=== PATIENT | female | born 1955 | race Caucasian/White ===

== ENCOUNTER 2017-04-29 15:31 | Emergency (ER) | payer BC ==
[~2017-04-29] VITALS: Ht 165.1 cm; Wt 88.5 kg
[~2017-04-29 15:31] MED LIST: KFL/250 PO
[2017-04-29 15:36] VITALS: TEMP 37.7; Ht 165.1 cm; Wt 88.5 kg
[2017-04-29] MEDS ORDERED: VANCOMYCIN INJ 2,200 MG in SODIUM CHLORIDE 0.9% 500ML 500 ML IV STA (15:52)
[2017-04-29] MEDS ORDERED: SODIUM CHLORIDE 0.9% 1000ML 2,000 ML IV STA (15:52)
[2017-04-29] MEDS ORDERED: CEFTRIAXONE SOD INJ 1 GM ADDVIAL IV STA (15:52)
--- NOTE | 2017-04-29 16:04 | EMERGENCY ROOM VISIT NOTE ---
History Report prepared by Madhu: Марина Barrow Under the Supervision of: Dr. Fawn Crawford M.D. First contact with patient: 15:41 Chief Complaint: RASH Stated Complaint: BAD RASH ON FACE, RIB PAIN, JITTERS History of Present Illness The patient is a 61 year old female who presents to the Emergency Room with complaints of a worsening rash on her face beginning 5 days ago. Five days ago, the patient's rash started as a red dot on her nose. She reports these spots were painful and had swelling around them. Two days ago, the patient's rash became "cecily sized" and her eye left eye was swollen. Two days ago, the patient was seen at [facility] and was put on Keflex and was told to come to the ED if the rash worsened. The patient states her rash worsened and started to spread more this morning. She notes fatigue, chills, a headache, a decreased appetite, and chest discomfort but denies any eye pain. She believes her chest tightness may be attributed to the Keflex. The patient reports recent tick bites in January. Two months ago, the patient was in [place]. Source of History: patient Onset: 5 days ago Position: other (facial) Quality: other (rash) Timing: worsening Associated Symptoms: + chills, + headache, + chest pain, + fatigue Note: The patient notes loss of appetite and pain to the rash areas. Review of Systems See HPI for pertinent positives & negatives. A total of 10 systems reviewed and were otherwise negative. Past Medical & Surgical Medical Problems: (1) Tick bite Family History Patient reports no known family medical history. Social History Smoking Status: Never Smoker Marital Status: Housing Status: lives with family Occupation Status: employed Current/Historical Medications Scheduled Cephalexin Monohydrate (Keflex), 250 MG PO QID Scheduled PRN Ibuprofen (Advil), 200-600 MG PO Q4H PRN for Pain or Fever Allergies Coded Allergies: No Known Allergies (Unverified , 04/29/17) Physical Exam Vital Signs Date Time Temp Pulse Resp B/P (MAP) Pulse Ox O2 Delivery O2 Flow Rate FiO2 04/29/17 20:07 82 18 120/74 94 04/29/17 18:36 88 22 93 04/29/17 18:31 88 21 123/77 93 04/29/17 18:01 92 04/29/17 18:01 91 24 91 04/29/17 18:00 130/73 04/29/17 17:56 91 18 115/69 97 Room Air 04/29/17 17:38 115/69 04/29/17 15:36 37.7 109 18 123/69 97 Room Air Physical Exam Vital signs reviewed. General: Well-appearing female, in no significant distress. HEENT: No scleral icterus, PERRLA, neck supple. Atraumatic. Facial rash as described below Cardiovascular: Regular rate and rhythm, no extra sounds. Pulmonary: Clear to auscultation bilaterally, normal work of breathing. Abdomen: Soft, nontender, nondistended, positive bowel sounds. Musculoskeletal: Atraumatic, no peripheral edema. Neurologic: Patient awake alert and oriented x 3, full strength in all 4 extremities. Cranial nerves 2 through 12 grossly intact. Skin: Left facial cheek with 3 centimeter area of induration and ecchymosis with surrounding erythema of periorbital space. Right facial cheek with small subcentimeter of induration and ecchymosis. Bridge of nose has similar induration and ecchymosis. Medical Decision & Procedures ER Provider Diagnostic Interpretation: Radiology results as stated below per my review and radiologist interpretation: CHEST ONE VIEW PORTABLE FINDINGS: Cardiomediastinal and hilar silhouettes are within normal limits. No pneumothorax, pleural effusion, focal airspace consolidation or overt pulmonary edema. Bones of the chest appear grossly intact. Atherosclerosis of the aorta. IMPRESSION: No acute cardiopulmonary process. The above report was generated using voice recognition software. It may contain grammatical, syntax or spelling errors. Electronically signed by: Byron Berry M.D. SOFT TISSUE NECK WITH FINDINGS: There is mild to moderate left periorbital, left temporal and left cheek soft tissue swelling with subcutaneous edema and skin thickening. No post septal or intraconal inflammatory changes. Bilateral orbits appear symmetric and unremarkable. No significant soft tissue swelling of the right face identified. No peripherally enhancing collections to suggest abscess. Submandibular and parotid glands are unremarkable. Mildly prominent bilateral level 1 and level 2 lymph nodes are likely reactive. No pathologic adenopathy by CT size criteria. Thyroid is homogeneous. The nasopharynx, oral pharynx and hypopharynx are patent. Mild secretions noted within the vallecula and piriform sinuses. Tonsilliths involve the palatine tonsils. No peritonsillar abscess. The glottis and subglottic airway are unremarkable. Carotid vasculature appears patent. No acute intracranial abnormality identified. Partially imaged ground glass opacities are noted within the superior segment left lower lobe. Multilevel facet arthropathy and endplate spurring of the cervical spine. Mastoid air cells are clear. Mild mucoperiosteal thickening of the maxillary and ethmoid sinuses. Multiple teeth are noted with dental amalgam. No large periapical cysts or dental abscess identified. IMPRESSION: 1. Mild to moderate left periorbital, left temporal and left cheek cellulitis without drainable fluid collection to suggest abscess. 2. Mildly prominent level I and level II lymph nodes are likely reactive. 3. Partially imaged groundglass opacities of the superior segment left lower lobe suggest atelectasis or pneumonitis. 4. Mild paranasal sinus disease. The above report was generated using voice recognition software. It may contain grammatical, syntax or spelling errors. Electronically signed by: Byron Berry M.D. Laboratory Results 04/29/17 16:10 Red Blood Count 3.41, Mean Corpuscular Volume 95.6, Mean Corpuscular Hemoglobin 32.0, Mean Corpuscular Hemoglobin Concent 33.4 04/29/17 16:10 Test 04/29/17 16:10 04/29/17 16:19 04/29/17 16:23 04/29/17 18:44 White Blood Count 58.16 K/uL (4.8-10.8) Red Blood Count 3.41 M/uL (4.2-5.4) Hemoglobin 10.9 g/dL (12.0-16.0) Hematocrit 32.6 % (37-47) Mean Corpuscular Volume 95.6 fL (80-100) Mean Corpuscular Hemoglobin 32.0 pg (25-34) Mean Corpuscular Hemoglobin Concent 33.4 g/dl (32-36) Platelet Count 30 K/uL (130-400) RDW Standard Deviation 57.0 fL (36.4-46.3) RDW Coefficient of Variation 16.5 % (11.5-14.5) Nucleated RBC Absolute Count (auto) 0.14 K/uL (0-0) Neutrophils % (Manual) 19.8 % Lymphocytes % (Manual) 9.3 % Monocytes % (Manual) 4.0 % Metamyelocytes % 0.4 % Myelocytes % 1.3 % Promyelocytes % 0.4 % Blast Cells % 64.8 % Nucleated Red Blood Cells % 0.2 % Neutrophils # (Manual) 11.52 K/uL (1.4-6.5) Total Absolute Neutrophils 11.52 K/uL (1.4-6.5) Lymphocytes # (Manual) 5.41 K/uL (1.2-3.4) Total Absolute Lymphocytes 5.41 K/uL (1.2-3.4) Monocytes # (Manual) 2.33 K/uL (0.11-0.59) Metamyelocytes # 0.23 K/uL (0-0) Myelocytes # 0.76 K/uL (0-0) Promyelocytes # 0.23 K/uL (0-0) Blast Cells # 37.69 K/uL (0-0) Blood Smear Review Toxic Vacuolation 1+ Dohle Bodies OCCASIONAL Platelet Estimate DECREASED Anion Gap 8.0 mmol/L (3-11) Est Creatinine Clear Calc Drug Dose 63.2 ml/min Estimated GFR () 67.6 Estimated GFR (Non- 58.4 BUN/Creatinine Ratio 13.5 (10-20) Uric Acid 2.6 mg/dl (2.6-7.2) Calcium Level 8.5 mg/dl (8.5-10.1) Total Bilirubin 0.7 mg/dl (0.2-1) Direct Bilirubin 0.2 mg/dl (0-0.2) Aspartate Amino Transf (AST/SGOT) 27 U/L (15-37) Alanine Aminotransferase (ALT/SGPT) 34 U/L (12-78) Alkaline Phosphatase 79 U/L (45-117) Lactate Dehydrogenase 578 U/L (84-246) Total Creatine Kinase 99 U/L (26-192) Creatine Kinase MB 1.1 ng/ml (0.5-3.6) Creatine Kinase MB Ratio 1.1 (0-3.0) Troponin I 3.260 ng/ml (0-0.045) Total Protein 7.2 gm/dl (6.4-8.2) Albumin 3.2 gm/dl (3.4-5.0) Lyme Disease IgG Antibody NEG (NEG) Bedside Lactic Acid Venous 0.96 mmol/L (0.90-1.70) Bedside Troponin I 2.510 ng/ml (0-0.045) Prothrombin Time 11.0 SECONDS (9.0-12.0) Prothromb Time International Ratio 1.0 (0.9-1.1) Activated Partial Thromboplast Time 26.8 SECONDS (21.0-31.0) Partial Thromboplastin Ratio 1.0 Fibrinogen 361 mg/dl (184-400) Laboratory results per my review. Medications Administered Medications (Trade) Dose Ordered Sig/Linda Route Start Time Stop Time Status Last Admin Dose Admin Sodium Chloride 2,000 ml @ 999 mls/hr Q2H1M STAT IV 04/29/17 15:52 04/29/17 17:52 DC 04/29/17 17:07 999 MLS/HR Vancomycin HCl 2200 mg/Sodium Chloride 544 ml @ 200 mls/hr ONE STAT IV 04/29/17 15:52 04/29/17 18:35 DC 04/29/17 17:10 200 MLS/HR Ceftriaxone Sodium (Rocephin Inj) 1 gm NOW STAT IV 04/29/17 15:52 04/29/17 16:00 DC 04/29/17 17:08 1 GM Miscellaneous Information (Patient'S Allergy Info Needs Entered) 1 ea Q30M N/A 04/29/17 16:15 04/29/17 21:28 DC 04/29/17 16:45 1 EA ECG Indication: chest pain, other (rash) Rate (beats per minute): 97 Rhythm: sinus rhythm Findings: no acute ischemic change, no ectopy, other (T-wave flattening in lateral and inferior leads, Normal QTC) Change: Repeat EKG: Normal sinus 90 bpm, low voltage, poor quality baseline, non specific ST segment abnormality, no change from prior. ED Course 1549: Past medical records reviewed. The patient was evaluated in room C7. A complete history and physical examination was performed. 1552: ordered Rocephin Inj 1 gm IV, Vancomycin HCl 2200 mg/Sodium Chloride 544 ml @ 200 mls/hr IV, Sodium Chloride 2000 ml @ 999 mls/hr IV. 1738: I updated the patient on her test results. 181: I reviewed the patient's case with Dr. Clay Oncologist . She will accept the patient for transfer and evaluate the patient for further management. 1849: I updated Dr. Clay Oncologist on the patient's elevated troponin. She recommends the patient be transferred to the ICU. 1854: I reviewed the patient's case with Dr. Tellez-DEVON Avalos. The patient will be transferred to the ICU in [place]. Medical Decision Differential diagnosis: Etiologies such as cellulitis, abscess, MRSA infection, DVT, necrotizing fasciitis, dermatitis, drug eruption, as well as others were entertained.. This patient was evaluated and appeared to be in no significant distress. Physical examination reveals cellulitic appearing lesion to the left facial cheek with erythema around the left side. It is a non-blanching central portion. There is several smaller lesions over the nasal bridge in the right facial cheek. IV access was obtained and laboratory work was drawn. Blood cultures were sent due to the patient's mild fever. Patient was given IV vancomycin 2.2 g and 1 g of IV ceftriaxone. She was hydrated with normal saline solution. CT scan of the neck and face reveal no drainable abscess or collection. Laboratory work reveals a WBC of 58,000. There are blasts seen on the smear of 65%, according to pathology. She is found have an elevated troponin of 3.2. EKG 2 reveals a low voltage QRS with nonspecific ST change, no evidence of ST elevation [place]. The patient's chest symptoms wax and wane however there is been no complaint of chest discomfort in the emergency department. There is great concern for an acute leukemic process. The case was discussed with the [facility] transfer Center who stated they are at capacity and cannot accept anybody in transfer this evening. [facility] was contacted and Dr. Orlando of hemothorax accepted the patient in transfer. The ICU attending Dr. Gray was consulted and accepted the patient. ALS ground transport was arranged. The patient and her partner were informed of the findings in the plan. Obviously this information comes as a shock however they did express understanding and agree with the plan for transfer. Medication Reconcilliation Current Medication List: was personally reviewed by me Blood Pressure Screening Patient's blood pressure: Normal blood pressure Consults Time Called: 1802 Consulting Physician: Dr. Clay Oncologist Returned Call: 1810 I reviewed the patient's case with Dr. Clay Oncologist . She will accept the patient for transfer and evaluate the patient for further management. Additional Consults: Time Called: 1849 Consulted Physician: Dr. Rasheeda Avalos Returned Call: 1854 Additional Comments: I reviewed the patient's case with Dr. Rasheeda Avalos. The patient will be transferred to the ICU in [place]. Impression Primary Impression: Acute leukemia Additional Impression: Elevated troponin Critical Care I have personally spent greater than 60 minutes of critical care time in the direct management of this patient. This includes bedside care, interpretation of diagnostic studies, and testing, discussion with consultants, patient, and family members, and other required patient management activities. This 60 minutes is in excess of all separately billable procedures. Scribe Attestation The scribe's documentation has been prepared under my direction and personally reviewed by me in its entirety. I confirm that the note above accurately reflects all work, treatment, procedures, and medical decision making performed by me. Departure Information Dispostion Transfer Acute Care Facility Referrals No Doctor, Assigned (PCP) Patient Instructions My [facility] Problem Qualifiers
[2017-04-29] MEDS ORDERED: OPTIRAY 320 IV PRN (16:15)
[2017-04-29] MEDS: PATIENT'S ALLERGY INFO NEEDS ENTERED SCH ×2 (16:15→16:45)
[2017-04-29] MEDS ORDERED: IBUP-1050 PO (16:25)
[2017-04-29 16:50] LABS: BUN/CREATININE RATIO 13.5 (10-20); CALCIUM 8.5 mg/dl (8.5-10.1); CREATININE 1.04 mg/dl (0.60-1.20); POTASSIUM 3.6 mmol/L (3.5-5.1)
[2017-04-29 17:05] LABS: HEMATOCRIT 32.6 % (37-47); MEAN CELL VOLUME 95.6 fL (80-100); MEAN CORPUSCULAR HGB CONC 33.4 g/dl (32-36); PLATELET COUNT 30 K/uL (130-400); RED BLOOD COUNT 3.41 M/uL (4.2-5.4); WHITE BLOOD COUNT 58.16 K/uL (4.8-10.8)
[2017-04-29 17:24] LABS: LYME DISEASE AB IGG NEG (NEG)
--- NOTE | 2017-04-29 17:25 | DIAGNOSTIC IMAGING REPORT ---
CHEST ONE VIEW PORTABLE HISTORY: 61 years-old Female chest pain acute atypical chest pain with rash COMPARISON: None available TECHNIQUE: Portable AP view of the chest FINDINGS: Cardiomediastinal and hilar silhouettes are within normal limits. No pneumothorax, pleural effusion, focal airspace consolidation or overt pulmonary edema. Bones of the chest appear grossly intact. Atherosclerosis of the aorta. IMPRESSION: No acute cardiopulmonary process. The above report was generated using voice recognition software. It may contain grammatical, syntax or spelling errors. Electronically signed by: Byron Berry M.D. 04/29/2017 5:23 PM Dictated Date/Time: 04/29/2017 5:22 PM
[2017-04-29 17:30] LABS: LYME DISEASE AB IGM EQUIVOCAL (NEG)
--- NOTE | 2017-04-29 17:47 | DIAGNOSTIC IMAGING REPORT ---
SOFT TISSUE NECK WITH HISTORY: 61 years-old Female R neck cellulitis, ? collection acute facial cellulitis, left greater than right COMPARISON: None available TECHNIQUE: Multiple axial CT images of the soft tissues of the neck were obtained following the intravenous administration of 94 no Optiray 320. A dose lowering technique was used consistent with the principals of VAN. FINDINGS: There is mild to moderate left periorbital, left temporal and left cheek soft tissue swelling with subcutaneous edema and skin thickening. No post septal or intraconal inflammatory changes. Bilateral orbits appear symmetric and unremarkable. No significant soft tissue swelling of the right face identified. No peripherally enhancing collections to suggest abscess. Submandibular and parotid glands are unremarkable. Mildly prominent bilateral level 1 and level 2 lymph nodes are likely reactive. No pathologic adenopathy by CT size criteria. Thyroid is homogeneous. The nasopharynx, oral pharynx and hypopharynx are patent. Mild secretions noted within the vallecula and piriform sinuses. Tonsilliths involve the palatine tonsils. No peritonsillar abscess. The glottis and subglottic airway are unremarkable. Carotid vasculature appears patent. No acute intracranial abnormality identified. Partially imaged ground glass opacities are noted within the superior segment left lower lobe. Multilevel facet arthropathy and endplate spurring of the cervical spine. Mastoid air cells are clear. Mild mucoperiosteal thickening of the maxillary and ethmoid sinuses. Multiple teeth are noted with dental amalgam. No large periapical cysts or dental abscess identified. IMPRESSION: 1. Mild to moderate left periorbital, left temporal and left cheek cellulitis without drainable fluid collection to suggest abscess. 2. Mildly prominent level I and level II lymph nodes are likely reactive. 3. Partially imaged groundglass opacities of the superior segment left lower lobe suggest atelectasis or pneumonitis. 4. Mild paranasal sinus disease. The above report was generated using voice recognition software. It may contain grammatical, syntax or spelling errors. Electronically signed by: Byron Berry M.D. 04/29/2017 5:46 PM Dictated Date/Time: 04/29/2017 5:38 PM
[2017-04-29 17:55] LABS: DOHLE BODIES OCCASIONAL; LYMPH ABS # 5.41 K/uL (1.2-3.4); LYMPHOCYTE % 9.3 %; META ABS # 0.23 K/uL (0-0); METAMYELOCYTE % 0.4 %; MYELOCYTE % 1.3 %; NEUTROPHILS % 19.8 %; PLT ESTIMATE DECREASED; VACUOLIZATION 1+
[2017-04-29 18:01] LABS: COMPLETE YES
[2017-04-29 18:21] LABS: CKMB/CK RATIO 1.1 (0-3.0); URIC ACID 2.6 mg/dl (2.6-7.2)
[2017-04-29 20:07] VITALS: BP 120/74; PULSE 82; O2SAT 94
== END 2017-04-29 20:08 | disposition short-term general hospital (02) ==
LOC: C.EDB 15:33 → C.EDC 20:08
DX: C95.90 Leukemia, unspecified not having achieved remission (principal); R79.89 Other specified abnormal findings of blood chemistry

== ENCOUNTER 2017-06-26 16:19 | Emergency (ER) | payer OTHER ==
[~2017-06-26] VITALS: Ht 165.1 cm; Wt 82.5 kg
[~2017-06-26 16:19] MED LIST changes: -ACYC-57 PO
[2017-06-26 16:24] VITALS: TEMP 36.9; O2SAT 100; Ht 165.1 cm; Wt 82.5 kg
[2017-06-26 17:40] LABS: PTT PATIENT 24.1 SECONDS (21.0-31.0)
[2017-06-26] MEDS ORDERED: ACYC-57 PO (17:44)
[2017-06-26 17:46] LABS: HEMATOCRIT 20.8 % (37-47); HEMOGLOBIN 6.8 g/dL (12.0-16.0); MEAN CELL VOLUME 91.2 fL (80-100); MEAN CORPUSCULAR HEMOGLOBIN 29.8 pg (25-34); MEAN CORPUSCULAR HGB CONC 32.7 g/dl (32-36); PLATELET COUNT 29 K/uL (130-400); RED CELL DISTRIBUTION WIDTH CV 17.5 % (11.5-14.5); RED CELL DISTRIBUTION WIDTH SD 57.9 fL (36.4-46.3); WHITE BLOOD COUNT 0.95 K/uL (4.8-10.8)
[2017-06-26 17:48] LABS: CALCIUM 8.8 mg/dl (8.5-10.1); CREATININE 0.98 mg/dl (0.60-1.20); POTASSIUM 3.9 mmol/L (3.5-5.1)
[2017-06-26 18:07] LABS: BASO % 1.1 %; BASO ABS # 0.01 K/uL (0-0.2); EOS % 3.2 %; EOS ABS # 0.03 K/uL (0-0.5); IG# 0.01 K/uL (0.00-0.02); LYMPH % 49.5 %; LYMPH ABS # 0.47 K/uL (1.2-3.4); MONO % 2.1 %; MONO ABS # 0.02 K/uL (0.11-0.59); NEUT ABS # 0.41 K/uL (1.4-6.5)
[2017-06-26] MEDS ORDERED: OPTIRAY 320 IV PRN (18:45)
--- NOTE | 2017-06-26 19:12 | DIAGNOSTIC IMAGING REPORT ---
(CHEST FOR PE) ANGIO WITH CT DOSE: 291.87 mGy.cm HISTORY: 61 years-old Female presents with acute DVT concern for pulmonary embolus TECHNIQUE: Multiple CTA images of the chest were obtained after the intravenous administration of 67 ml Optiray 320. Coronal and sagittal MIPS were obtained from the axial data set and were submitted for review. A dose lowering technique was utilized adhering to the principles of ALARA. COMPARISON: Duplex Doppler study of same day, chest radiograph 04/29/2017. FINDINGS: CTA: Heart is normal in size without pericardial effusion. The thoracic aorta is normal in both course and caliber without aneurysm or dissection. The imaged great vessels appear patent. There is moderate deep tissue edema and stranding surrounding the left maxillary, subclavian, left internal jugular and brachiocephalic veins. No discrete thrombus identified. Right internal jugular central venous catheter is noted with distal tip terminating in the SVC just proximal to the cavoatrial junction. The pulmonary arterial tree is opacified to level of the proximal subsegmental branches and demonstrates no focal filling defects to suggest pulmonary thromboembolic disease. CT CHEST: No dominant thyroid nodule. No pathologic adenopathy of the chest identified. There is no pneumothorax or pleural effusion identified, however the inferior portion of the lung bases are not imaged on the axial images. There are linear subsegmental consolidative opacities of the dependent lower lobes bilaterally extending to the posterior pleural surface. Subsegmental are calcified granuloma of the left lower lobe. 4 mm nodular opacity of the right lower lobe as seen on image 106 series 4. Central airways are patent. No acute abnormality of the imaged upper abdomen. Soft tissues are unremarkable otherwise. Bones appear intact. IMPRESSION: 1. No acute aortic pathology or evidence of pulmonary thromboembolic disease. 2. Moderate deep tissue edema surrounding the left axillary and subclavian veins likely relates to previously described deep venous thrombosis. Soft tissue stranding is also seen surrounding the left internal jugular and subclavian veins. 3. Subsegmental linear consolidative opacities of the bilateral lung bases suggest atelectasis with pneumonitis thought to be less likely. The above report was generated using voice recognition software. It may contain grammatical, syntax or spelling errors. Electronically signed by: Byron Berry M.D. 06/26/2017 7:11 PM Dictated Date/Time: 06/26/2017 7:03 PM
[2017-06-26 20:31] VITALS: BP 179/89
[2017-06-26 20:36] VITALS: PULSE 105
--- NOTE | 2017-06-26 23:45 | EMERGENCY ROOM VISIT NOTE ---
History Report prepared by Madhu: Donn Siddiqui Under the Supervision of: Dr. Patrice Bryant D.O. First contact with patient: 16:40 Chief Complaint: ARM PAIN Stated Complaint: BLOT CLOT IN LT ARM- REFERRED History of Present Illness The patient is a 61 year old female who presents to the Emergency Room with complaints of worsening left arm pain and swelling beginning this week. She is currently being treated for AML, and was diagnosed last month. The patient was seen by her oncologist today for similar symptoms and was called just prior to arrival, and was told that she had DVT by ultrasound. Her last dose of chemotherapy was five days ago, and had a port placed at this time. She had a consolidation treatment in last week in [facility] where she had a left sided PICC line placed and removed. The patient also complains of generalized weakness, and shortness of breath (on exertion). She denies pain with breathing. She denies chest pain, nausea, vomiting, vaginal bleeding, bloody stool, or diarrhea. The patient has not been on blood thinners before. She denies recent trauma, or coughing blood. Source of History: patient Onset: This week Position: arm (left) Quality: other (pain and swelling) Timing: worsening Associated Symptoms: + SOB (on exertion), + weakness (generalized), No chest pain, No nausea, No vomiting, No melena, No diarrhea Note: The patient denies vaginal bleeding. Review of Systems See HPI for pertinent positives & negatives. A total of 10 systems reviewed and were otherwise negative. 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 Social History Smoking Status: Former Smoker Marital Status: Housing Status: lives with family Occupation Status: employed Current/Historical Medications Scheduled Acyclovir (Zovirax), 400 MG PO BID Allergies Coded Allergies: Vancomycin (Verified Allergy, Mild, Full body rash, 06/26/17) Physical Exam Vital Signs Date Time Temp Pulse Resp B/P (MAP) Pulse Ox O2 Delivery O2 Flow Rate FiO2 06/26/17 20:36 105 22 06/26/17 20:31 179/89 06/26/17 20:30 166/108 06/26/17 18:36 72 12 06/26/17 18:31 176/97 06/26/17 18:23 149/96 06/26/17 18:19 78 23 06/26/17 18:00 149/96 06/26/17 17:49 72 15 06/26/17 17:34 69 06/26/17 17:30 147/88 06/26/17 16:24 36.9 109 18 129/89 100 Room Air Physical Exam GENERAL: Sitting up in bed, alert, chronically ill appearing, disheveled. EYE EXAM: normal conjunctiva. OROPHARYNX: no exudate, no erythema, lips, buccal mucosa, and tongue normal and mucous membranes are moist NECK: supple, no nuchal rigidity, no adenopathy, non-tender LUNGS: Clear to auscultation. Normal chest wall mechanics HEART: no murmurs, S1 normal and S2 normal CHEST: Nguyen placed over right chest. ABDOMEN: abdomen soft, non-tender, normo-active bowel sounds, no masses, no rebound or guarding. BACK: Back is symmetrical on inspection and there is no deformity, no midline tenderness, no CVA tenderness. SKIN: no rashes and no bruising UPPER EXTREMITIES: LUE larger than right. Radial pulses intact bilaterally. LOWER EXTREMITIES: Calves equal bilaterally. NEURO EXAM: Normal sensorium, cranial nerves II-XII grossly intact, normal speech, no gross weakness of arms, no gross weakness of legs. Medical Decision & Procedures ER Provider Diagnostic Interpretation: Radiology results as stated below per my review and the radiologist's interpretation: (CHEST FOR PE) ANGIO WITH FINDINGS: CTA: Heart is normal in size without pericardial effusion. The thoracic aorta is normal in both course and caliber without aneurysm or dissection. The imaged great vessels appear patent. There is moderate deep tissue edema and stranding surrounding the left maxillary, subclavian, left internal jugular and brachiocephalic veins. No discrete thrombus identified. Right internal jugular central venous catheter is noted with distal tip terminating in the SVC just proximal to the cavoatrial junction. The pulmonary arterial tree is opacified to level of the proximal subsegmental branches and demonstrates no focal filling defects to suggest pulmonary thromboembolic disease. CT CHEST: No dominant thyroid nodule. No pathologic adenopathy of the chest identified. There is no pneumothorax or pleural effusion identified, however the inferior portion of the lung bases are not imaged on the axial images. There are linear subsegmental consolidative opacities of the dependent lower lobes bilaterally extending to the posterior pleural surface. Subsegmental are calcified granuloma of the left lower lobe. 4 mm nodular opacity of the right lower lobe as seen on image 106 series 4. Central airways are patent. No acute abnormality of the imaged upper abdomen. Soft tissues are unremarkable otherwise. Bones appear intact. IMPRESSION: 1. No acute aortic pathology or evidence of pulmonary thromboembolic disease. 2. Moderate deep tissue edema surrounding the left axillary and subclavian veins likely relates to previously described deep venous thrombosis. Soft tissue stranding is also seen surrounding the left internal jugular and subclavian veins. 3. Subsegmental linear consolidative opacities of the bilateral lung bases suggest atelectasis with pneumonitis thought to be less likely. The above report was generated using voice recognition software. It may contain grammatical, syntax or spelling errors. Electronically signed by: Byron Berry M.D. 06/26/2017 7:11 PM L VENOUS DOPPLER UPR EXT UNIL FINDINGS: Left: Internal jugular vein: Filling defect in a limited portion of the lower internal jugular vein consistent with thrombus. This appears nonocclusive. Subclavian vein: Nonocclusive thrombus. Axillary vein: Nearly occlusive thrombus. Basilic vein: Nearly occlusive thrombus. Brachial vein: Nearly occlusive thrombus. Cephalic vein: Occlusive thrombus. Radial vein: Likely patent. Ulnar vein: Likely patent. Other: None. IMPRESSION: Nearly occlusive thrombus extensively in superficial and deep veins of the upper arm extending into the axillary, subclavian, and lower internal jugular veins on the left. The report will be called/faxed according to standard departmental protocol. Electronically signed by: Maximo Rocha M.D. 06/26/2017 3:42 PM Laboratory Results 06/26/17 17:21 Red Blood Count 2.28, Mean Corpuscular Volume 91.2, Mean Corpuscular Hemoglobin 29.8, Mean Corpuscular Hemoglobin Concent 32.7, Mean Platelet Volume 11.0, Neutrophils (%) (Auto) 43.0, Lymphocytes (%) (Auto) 49.5, Monocytes (%) (Auto) 2.1, Eosinophils (%) (Auto) 3.2, Basophils (%) (Auto) 1.1, Neutrophils # (Auto) 0.41, Lymphocytes # (Auto) 0.47, Monocytes # (Auto) 0.02, Eosinophils # (Auto) 0.03, Basophils # (Auto) 0.01 06/26/17 17:21 Test 06/26/17 17:21 White Blood Count 0.95 K/uL (4.8-10.8) Red Blood Count 2.28 M/uL (4.2-5.4) Hemoglobin 6.8 g/dL (12.0-16.0) Hematocrit 20.8 % (37-47) Mean Corpuscular Volume 91.2 fL (80-100) Mean Corpuscular Hemoglobin 29.8 pg (25-34) Mean Corpuscular Hemoglobin Concent 32.7 g/dl (32-36) Platelet Count 29 K/uL (130-400) Mean Platelet Volume 11.0 fL (7.4-10.4) Neutrophils (%) (Auto) 43.0 % Lymphocytes (%) (Auto) 49.5 % Monocytes (%) (Auto) 2.1 % Eosinophils (%) (Auto) 3.2 % Basophils (%) (Auto) 1.1 % Neutrophils # (Auto) 0.41 K/uL (1.4-6.5) Lymphocytes # (Auto) 0.47 K/uL (1.2-3.4) Monocytes # (Auto) 0.02 K/uL (0.11-0.59) Eosinophils # (Auto) 0.03 K/uL (0-0.5) Basophils # (Auto) 0.01 K/uL (0-0.2) RDW Standard Deviation 57.9 fL (36.4-46.3) RDW Coefficient of Variation 17.5 % (11.5-14.5) Immature Granulocyte % (Auto) 1.1 % Immature Granulocyte # (Auto) 0.01 K/uL (0.00-0.02) Hypersegmented Polys 1+ Toxic Vacuolation 1+ Dohle Bodies 1+ Platelet Estimate SIGNIFIC DECREASED Large Platelets 1+ Anisocytosis PRESENT Prothrombin Time 10.7 SECONDS (9.0-12.0) Prothromb Time International Ratio 1.0 (0.9-1.1) Activated Partial Thromboplast Time 24.1 SECONDS (21.0-31.0) Partial Thromboplastin Ratio 0.9 Anion Gap 7.0 mmol/L (3-11) Est Creatinine Clear Calc Drug Dose 64.8 ml/min Estimated GFR () 72.7 Estimated GFR (Non- 62.7 BUN/Creatinine Ratio 25.9 (10-20) Calcium Level 8.8 mg/dl (8.5-10.1) Troponin I 0.159 ng/ml (0-0.045) Laboratory results per my review. ECG Indication: SOB/dyspnea Rate (beats per minute): 77 Rhythm: sinus rhythm Findings: other (T-wave flattening anterior leads. Poor baseline in V4/AVL. ) ED Course ED COURSE: Vital signs were reviewed and showed tachycardia The patients medical record was reviewed The above diagnostic studies were performed and reviewed. ED treatments and interventions as stated above. 1640: The patient was evaluated in room C6. A complete history and physical examination was performed. 1820: Upon reevaluation, the patient is resting comfortably. I discussed my findings with the patient and she understands and agrees with the treatment plan. Based on the patients age, coexisting illnesses, exam and lab findings the decision to treat as an inpatient was made. The patient remained stable while under my care. The patient will be transferred to [facility]. 1906: I updated the patient on her transfer situation. 2001: I reassessed the patient. She is resting comfortably. I updated her on the timing of her transfer. 2100: I updated the patient again. Medical Decision Differential diagnosis: Etiologies such as DVT, musculoskeletal, infection, joint effusion, trauma, lymphedema, idiopathic, CHF, as well as others were entertained. Patient is a 61-year-old female with a recent diagnosis of AML was recently admitted and discharged with a PICC line in her left upper extremity. She had an outpatient ultrasound which shows near complete occlusion an extensive DVT in her left upper extremity. She is short of breath with exertion. CT PE was performed and unremarkable. CBC shows a pancytopenia with a hemoglobin of 6.8 and a platelet of 29,000. She did have a slightly elevated troponin at 0.159. BMP was unable otherwise unremarkable. EKG was nondiagnostic. I discussed with our licensed real estate broker oncologist and internal medicine physician. Recommended transferring. Discussed with our vascular surgeon as well. He notes he does not believe that she is a candidate for a filter. [facility]ed with [facility] [place] who [place] the [place]. Patient was updated bedside. I did not start her on heparin at this time as her platelets were 20,000 and she was at a high risk of bleeding. There is no PE. I did discuss this with the exception physician and he agreed with the current treatment plan. Medication Reconcilliation Current Medication List: was personally reviewed by me Blood Pressure Screening Patient's blood pressure: Normal blood pressure Blood pressure disposition: Did not require urgent referral Consults Time Called: 1815 Consulting Physician: Dr. Hills - [facility] Oncology Returned Call: 1818 I reviewed the patient's case with Dr. Hills. He recommends that the patient be transferred to [facility]. Additional Consults: Time Called: 1819 Consulted Physician: Dr. Rowan - [facility] Returned Call: [phone] Additional Comments: Discussed the patient's case. Dr. Rowan agrees with transfer of the patient. Time Called: 1824 Consulted Physician: Dr. Castle - Vascular Surgery Returned Call: [phone] Additional Comments: I reviewed the patient's case with Dr. Castle. He does not feel that the patient is a candidate for a filter or thrombolytics. 184: I discussed the patient's case with Dr. Calero of [facility] Hemology/ Oncology. The patient was accepted for transfer to [facility], but the wait is at least 24 hours. 190: Spoke with Dr. Calero again. The patient was able to get a bed and will be transferred earlier. Impression Primary Impression: DVT (deep venous thrombosis) Additional Impressions: AML (acute myeloid leukemia) Pancytopenia Elevated troponin Scribe Attestation The scribe's documentation has been prepared under my direction and personally reviewed by me in its entirety. I confirm that the note above accurately reflects all work, treatment, procedures, and medical decision making performed by me. Departure Information Dispostion Transfer Acute Care Facility ([facility]) Referrals No Doctor, Assigned (PCP) Patient Instructions My [facility] Problem Qualifiers Primary Impression: DVT (deep venous thrombosis) DVT location: upper extremity Affected thrombotic vein of extremity: unspecified vein of extremity Chronicity: acute Laterality: left Qualified Codes: I82.622 - Acute embolism and thrombosis of deep veins of left upper extremity Additional Impressions: AML (acute myeloid leukemia) Leukemia Active/Remission status: without remission Qualified Codes: C92.00 - Acute myeloblastic leukemia, not having achieved remission
== END 2017-06-26 21:00 | disposition short-term general hospital (02) ==
LOC: C.EDB 16:21 → C.EDC 21:00
DX: I82.622 Acute embolism and thrombosis of deep veins of left upper extremity (principal); C92.00 Acute myeloblastic leukemia, not having achieved remission; D61.818 Other pancytopenia; R79.89 Other specified abnormal findings of blood chemistry; Z87.891 Personal history of nicotine dependence

== ENCOUNTER → 2017-06-26 | Outpatient (CLI) | payer OTHER ==
[~2017-06-26] MED LIST changes: +ACYC-57 PO; +IBUP-1050 PO
--- NOTE | 2017-06-26 15:44 | DIAGNOSTIC IMAGING REPORT ---
L VENOUS DOPPLER UPR EXT UNIL CLINICAL HISTORY: 61 years-old Female presenting with LEFT ARM SWELLING. TECHNIQUE: Real-time grayscale and color and spectral Doppler ultrasound imaging of the veins of the left upper extremity was performed. Compression and augmentation were also utilized. COMPARISON: None. FINDINGS: Left: Internal jugular vein: Filling defect in a limited portion of the lower internal jugular vein consistent with thrombus. This appears nonocclusive. Subclavian vein: Nonocclusive thrombus. Axillary vein: Nearly occlusive thrombus. Basilic vein: Nearly occlusive thrombus. Brachial vein: Nearly occlusive thrombus. Cephalic vein: Occlusive thrombus. Radial vein: Likely patent. Ulnar vein: Likely patent. Other: None. IMPRESSION: Nearly occlusive thrombus extensively in superficial and deep veins of the upper arm extending into the axillary, subclavian, and lower internal jugular veins on the left. The report will be called/faxed according to standard departmental protocol. Electronically signed by: Maximo Rocha M.D. 06/26/2017 3:42 PM Dictated Date/Time: 06/26/2017 3:40 PM
== END | disposition home or self-care (01) ==
LOC: C.ULTRBC 14:59
PROVIDERS: ATTEND Internal Medicine Hematology & Oncology
DX: C92.00 Acute myeloblastic leukemia, not having achieved remission (principal); M79.89 Other specified soft tissue disorders

== ENCOUNTER → 2017-07-09 | Outpatient (CLI) | payer OTHER ==
[~2017-07-09] MED LIST changes: +ACYC-57 PO; -IBUP-1050 PO; -KFL/250 PO
--- NOTE | 2017-07-09 18:30 | DIAGNOSTIC IMAGING REPORT ---
LEFT UPPER EXTREMITY VENOUS DOPPLER HISTORY: Follow-up LT ARM DVT,COMPARE TO 06/27/17 COMPARISON STUDY: Left arm venous Doppler 06/26/2017. FINDINGS: The left internal jugular vein is patent. There is near occlusive thrombus seen within the left subclavian, axillary, and proximal basilic veins. The left brachial, radial, ulnar, and cephalic veins are patent. IMPRESSION: Overall, interval improvement in the left upper extremity DVT with the. There is now near occlusive thrombus remaining within the left subclavian, axillary, and proximal basilic veins. Electronically signed by: Jonah Figueredo M.D. 07/09/2017 6:28 PM Dictated Date/Time: 07/09/2017 6:25 PM
== END | disposition home or self-care (01) ==
LOC: C.ULTR 17:02
PROVIDERS: ATTEND Internal Medicine Hematology
DX: I82.A19 Acute embolism and thrombosis of unspecified axillary vein (principal)

== ENCOUNTER → 2017-12-06 | Outpatient (CLI) | payer OTHER ==
[~2017-12-06] MED LIST changes: +ALPR-411 PO; +CDN15 PO; +CIPR1TAB11 PO; +DOXY100C76 PO; +POSA1TAB PO
--- NOTE | 2017-12-07 13:13 | PULMONARY FUNCTION TEST ---
Spirometry is consistent with a mild obstructive pattern. Repeat study done following bronchodilators showed significant improvement in small airways function only. Flow volume loops were consistent with spirometric findings. Lung volumes are normal. Diffusion capacity is reduced to 45% of predicted. When corrected for alveolar ventilation, diffusion was 64%. The diffusion results could be affected by anemia if present. Advised clinical correlation.
== END | disposition home or self-care (01) ==
LOC: C.RC 08:36
PROVIDERS: ATTEND Internal Medicine Hematology & Oncology
DX: C92.01 Acute myeloblastic leukemia, in remission (principal)

== ENCOUNTER → 2017-12-10 | Outpatient (CLI) | payer OTHER ==
[2017-12-10 11:11] LABS: MEAN CORPUSCULAR HGB CONC 33.8 g/dl (32-36); MEAN PLATELET VOLUME 11.6 fL (7.4-10.4)
[2017-12-10 11:20] LABS: HEMATOCRIT 20.1 % (37-47); HEMOGLOBIN 6.8 g/dL (12.0-16.0); MEAN CELL VOLUME 86.6 fL (80-100); MEAN CORPUSCULAR HEMOGLOBIN 29.3 pg (25-34); PLATELET COUNT 23 K/uL (130-400); RED CELL DISTRIBUTION WIDTH CV 12.9 % (11.5-14.5); RED CELL DISTRIBUTION WIDTH SD 40.5 fL (36.4-46.3); WHITE BLOOD COUNT 2.13 K/uL (4.8-10.8)
== END | disposition home or self-care (01) ==
LOC: C.LABSPEC 10:42
PROVIDERS: ATTEND Internal Medicine Hematology & Oncology
DX: C92.01 Acute myeloblastic leukemia, in remission (principal)

== ENCOUNTER 2018-05-15 13:06 | Inpatient (IN) ==
[2018-05-15] MEDS ORDERED: SODIUM CHLORIDE 0.9% 250 ML IV PRN ×2 (15:20→21:10)
--- NOTE | 2018-05-15 16:13 | CT Scan Report ---
CT head/brain wo con CLINICAL HISTORY: 62 years-old Female presenting with syncope/low platelets eval for bleed. TECHNIQUE: Multidetector CT imaging of the head was performed without the use of intravenous contrast . IV contrast: None. A dose lowering technique was used consistent with the principles of ALARA (as l ow as reasonably achievable). COMPARISON: None. CT DOSE (mGy.cm): The estimated cumulative dose is 537.48 mGy.cm. FINDINGS: Emergency Veterinarian topogram: Unremarkable. Proportional ventricular and sulcal prominence, likely age-related parenchymal volume loss. No hemorr josesito. Brain parenchyma normal in appearance with preserved velázquez-white differentiation. No acute em torial infarct. No mass effect or midline shift. No extra-axial fluid collection. Paranasal sinuses a nd mastoid air cells clear. Calvarium intact. IMPRESSION: 1. No acute intracranial abnormality. Electronically signed by: Maximo Rocha M.D. 05/15/2018 4:12 PM
--- NOTE | 2018-05-15 17:29 | History & Physical Report ---
Date of Service May 15, 2018 Assessment & Plan (1) Syncope: Syncope/symptomatic anemia/thrombocytopenia-- Admit to monitored bed. Monitor for arrhythmia. Transfuse 2 units PRBCs tonight. Transfuse 2 units platelets tonight. Follow serial laboratories. Consult her oncologist Dr. Ojeda. Present on Admission?: Yes (2) AML (acute myeloid leukemia): Transfuse as above. Neutropenic precautions. Consult Dr. Ojeda. Present on Admission?: Yes (3) Thrombocytopenia: Transfuse platelets as noted above. Only signs of bleeding is been a light amount of epistaxis. She does have significant bruising. Present on Admission?: Yes (4) Symptomatic anemia: Present on Admission?: Yes (5) Elevated troponin: Troponin upon admission 0.047 is the lowest that has been over the past few weeks. Will still need to admit to the telemetry unit for continued monitoring, however , the patient's shortness of breath is likely secondary to more significant anemia than usual. Present on Admission?: Yes History of Present Illness Chief Complaint: The patient presents to the emergency department at the referral of her oncologist Dr. Ojeda, due to recurrent nosebleeds, and syncopal episode while at his office today. Primary Care Provider: NO PCP The patient is a 62-year-old female with a past medical history including AML in relapse, with her last chemo treatment 5 days ago, who was at Dr. Ojeda' s office today, when she passed out while sitting in a chair. She has had recurrent episodes of nosebleeds, was found to have platelets of 7 and hemoglobin 7.8, and was referred to the emergency department for assessment, treatment and admission. Allergies Allergy/AdvReac Type Severity Reaction Status Date / Time vancomycin Allergy Mild Full body Verified 05/15/18 15:22 rash Home Medications Home Medications Medication Instructions Recorded Confirmed Type acyclovir [Zovirax] 400 mg PO BID 05/15/18 05/15/18 History alprazolam [Xanax] 0.5 mg PO HS PRN 05/15/18 05/15/18 History hydroxyurea 2,000 mg PO BID 05/15/18 05/15/18 History isavuconazonium sulfate [Cresemba] 372 mg PO DAILY 05/15/18 05/15/18 History magnesium chloride [Slow-Mag] 4 tabs PO DAILY 05/15/18 05/15/18 History sirolimus [Rapamune] 2 mg PO DAILY 05/15/18 05/15/18 History sulfamethoxazole-trimethoprim 1 tab PO UD 05/15/18 05/15/18 History [Bactrim DS] Past Med/Surg History Medical History Acute myeloid leukemia (Acute) Central venous catheter in place (Acute) DVT (deep venous thrombosis) (Acute) Family History Father Heart attack Other No significant family history Social History Current Living Situation: Spouse and Significant Other Other Information That Helps Us Care for You: No Feels Safe at Home: Yes Safety Concerns: Feels Safe At This Time Smoking Status: Former smoker Do You Dip or Chew Tobacco: No Smoking End Date: about 1987 Hx Alcohol Use: No (none in over a year) Hx Substance Use: No (medical marijuana) Beliefs That Will Affect Care: None Preferred Language: Indonesian Communication Ability: Effective Educational Therapist Required: No Review of Systems The patient denies chest pain, palpitations, shortness of breath, dyspnea on exertion, cough, lower extremity swelling, sore throat, fevers, chills, sweats, nausea, vomiting, diarrhea , constipation, abdominal pain, pelvic pain, blood in urine or stool, dysuria, urinary frequency or urgency, memory loss, loss of consciousness, focal weakness, numbness or tingling in arms or legs, generalized arthralgias or myalgias, back or neck pain, or night sweats. The review of systems is otherwise negative other than for that already noted above, and at least 10 systems have been reviewed. Physical Exam 2 Vital Signs (Past 24 Hours): Last Vital Signs Temp 36.7 C 05/15/18 13:11 Pulse 87 05/15/18 14:33 Resp 16 05/15/18 14:33 BP 132/82 05/15/18 14:33 Pulse Ox 97 05/15/18 14:33 Physical Exam: The patient is awake, alert and oriented 3, well developed and well nourished, normocephalic and atraumatic, lying in bed and in no acute distress. HEENT--PERRL, EOMI, mucous membranes and oropharynx dry. Neck--supple. No JVD. No bruits. Thyroid normal, trachea midline, no adenopathy. Heart--normal S1 and S2. No murmurs, rubs or gallops. Lungs--clear bilaterally, no respiratory distress, no accessory muscle use. Abdomen--normal bowel sounds and soft. Nontender. Nondistended, no hernias or masses, no organomegaly. Extremities--no cyanosis or clubbing. No edema. There are good distal pulses b/ l. Dermatologic--multiple ecchymoses, upper extremities greater than lower. Neurologic--cranial nerves II through XII grossly intact. Rheumatologic--normal range of motion. Psychiatric--normal affect. Results & Data Laboratory Results Laboratory Results Troponin I 0.047 ng/ml (0-0.045) H* 05/15/18 15:33 Blood Type A Negative 05/15/18 15:33 Antibody Screen NEGATIVE 05/15/18 15:33 Crossmatch See Detail 05/15/18 15:33 Diagnostic Findings [place], [place] [phone] CT Scan Report Patient: TAMIKA LEMUS LAdmit Date: 05/15/18 MR#: [id number]: [address] Acct ID:[id number]: Date: 1955[facility] Zip: [place] [address] Age: 62Location: ED Sex: F Room/Bed: Att Phy: Diagnosis: LOW PLATLETS, NOSE BLEEDS Ira Phy: PCP,NO Service Date: 05/15/18 Fam Phy: Interpreting Phy: Maximo Rocha MD Admit Phy: Ordering Phy: Onofre Brasher M.D. cc: ~ CT head/brain wo con CLINICAL HISTORY: 62 years-old Female presenting with syncope/low platelets eval for bleed. TECHNIQUE: Multidetector CT imaging of the head was performed without the use of intravenous contrast. IV contrast: None. A dose lowering technique was used consistent with the principles of ALARA (as low as reasonably achievable). COMPARISON: None. CT DOSE (mGy.cm): The estimated cumulative dose is 537.48 mGy.cm. FINDINGS: Assistant Manager Airside Operations topogram: Unremarkable. Proportional ventricular and sulcal prominence, likely age-related parenchymal volume loss. No hemorrhage. Brain parenchyma normal in appearance with preserved velázquez-white differentiation. No acute territorial infarct. No mass effect or midline shift. No extra-axial fluid collection. Paranasal sinuses and mastoid air cells clear. Calvarium intact. IMPRESSION: 1. No acute intracranial abnormality. Electronically signed by: Maximo Rocha M.D. 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
[2018-05-15] MEDS ORDERED: ACETAMINOPHEN 325 MG TAB PO PRN (20:09)
[2018-05-15] MEDS ORDERED: ALUMINUM/MAGNESIUM SUSP 30 ML UDC PO PRN (20:09)
[2018-05-15] MEDS ORDERED: ONDANSETRON INJ 2 MG/ML 2 ML VIAL IV PRN (20:09)
[2018-05-15] MEDS ORDERED: MAGNESIUM HYDROXIDE SUSP 30 ML UDC PO PRN (20:09)
[2018-05-15] MEDS ORDERED: ALPRAZolam 0.5 MG TABLET PO PRN (20:09)
[2018-05-15] MEDS ORDERED: ACETAMINOPHEN 1000 MG/100 ML IV IV PRN (20:09)
[2018-05-15] MEDS ORDERED: POLYETHYLENE (MIRALAX) 17 GM PACK PO PRN (20:09)
[2018-05-15] MEDS ORDERED: NITROGLYCERIN SL 0.4 MG/TAB TAB SL PRN (20:09)
[2018-05-15] MEDS: SULFAMETHOXAZOLE/TRIMETHOPRIM DS 800/160MG TAB PO SCH ×2 (21:00→21:39)
[2018-05-15] MEDS ORDERED: NSS + 20MEQ KCL 20 MEQ/1,000 ML BAG IV SCH (21:00)
[2018-05-15] MEDS: HYDROXYUREA 500 MG CAP PO SCH (21:40)
[2018-05-15] MEDS: ACYCLOVIR 400 MG TAB PO SCH (21:40)
--- NOTE | 2018-05-15 21:51 | Emergency Department Note ---
Entered by Ashkan Benitez acting as a scribe for Onofre Brasher MD History of Present Illness General Chief complaint: Animal Bite Stated complaint: LOW PLATLETS, NOSE BLEEDS Source: patient History of Present Illness Provider complaint: doctor referral for syncope Onset (ago): day(s) (today) Location: head (general) Pain Consistency: + other (sudden) Quality: + other (syncopal episode) Associated symptoms: + denies other symptoms (abdominal pain, black tarry stool) ; no fever/chills and no shortness of breath The patient is a 62 year old female who presents to the Emergency Room secondary to a doctor referral. The patient states that she felt lightheaded and experienced a syncopal episode for a couple seconds while giving having blood drawn which is something abnormal for her. The patient states she was in a chair when she passed out and she did not hit her head. The patient has a past medical history of Leukemia and had her last round of chemo 5 days ago. The patient states that she had a nose bleed last night, but denies any active bleeding. The patient denies any headache, chest pain, black tarry stool, or stomach pain. The patient reports she often gets short of breath upon exertion, but that it normal for her. The patient had blood work today around 1100 which revealed her platelets were at 7, HGB at 7.8, as compared to her blood work on Sunday which revealed her platelets were at 14. Home Medications Home Medications Medication Instructions Recorded Confirmed Type acyclovir [Zovirax] 400 mg PO BID 05/15/18 05/15/18 History alprazolam [Xanax] 0.5 mg PO HS PRN 05/15/18 05/15/18 History hydroxyurea 2,000 mg PO BID 05/15/18 05/15/18 History isavuconazonium sulfate [Cresemba] 372 mg PO DAILY 05/15/18 05/15/18 History magnesium chloride [Slow-Mag] 4 tabs PO DAILY 05/15/18 05/15/18 History sirolimus [Rapamune] 2 mg PO DAILY 05/15/18 05/15/18 History sulfamethoxazole-trimethoprim 1 tab PO UD 05/15/18 05/15/18 History [Bactrim DS] Allergies Allergy/AdvReac Type Severity Reaction Status Date / Time vancomycin Allergy Mild Full body Verified 05/15/18 15:22 rash Past Med/Surg History Medical History Acute myeloid leukemia (Acute) Central venous catheter in place (Acute) DVT (deep venous thrombosis) (Acute) Family History Father Heart attack Other No significant family history Social History Current Living Situation: Spouse and Significant Other Other Information That Helps Us Care for You: No Feels Safe at Home: Yes Safety Concerns: Feels Safe At This Time Smoking Status: Former smoker Do You Dip or Chew Tobacco: No Smoking End Date: about 1987 Hx Alcohol Use: No (none in over a year) Hx Substance Use: No (medical marijuana) Beliefs That Will Affect Care: None Preferred Language: Spanish Communication Ability: Effective General Maintenance Mechanic Required: No Review of Systems See HPI for pertinent positives & negatives. and A total of 10 systems reviewed and were otherwise negative Physical Exam Vital Signs Vital Signs - 24 hr 05/15/18 13:11 05/15/18 14:33 05/15/18 16:00 Temperature 36.7 C Temperature Source Oral Sepsis Recent Fever Within 48 Hours No Sepsis Action Taken by Nursing No Action Required Pulse Rate 104 H Pulse Rate [Finger] 87 86 Pulse Rhythm Pulse Rhythm [Finger] Regular Pulse Strength [Finger] Normal Respiratory Rate 20 16 20 Respiratory Effort / Characteristics Non-Labored Spontaneous Non-Labored Respiratory Depth Normal Normal Respiratory Pattern Regular Blood Pressure 105/63 Blood Pressure [Right Arm] 132/82 125/77 Blood Pressure Mean 77 Blood Pressure Mean [Right Arm] 98 93 Blood Pressure Position [Right Arm] Sitting Pulse Oximetry 100 97 98 Oxygen Delivery Method Room Air Room Air 05/15/18 17:47 05/15/18 18:23 05/15/18 19:00 Temperature Temperature Source Sepsis Recent Fever Within 48 Hours Sepsis Action Taken by Nursing Pulse Rate 93 H 93 H 98 H Pulse Rate [Finger] Pulse Rhythm Pulse Rhythm [Finger] Pulse Strength [Finger] Respiratory Rate 16 18 11 L Respiratory Effort / Characteristics Respiratory Depth Respiratory Pattern Blood Pressure 125/77 Blood Pressure [Right Arm] Blood Pressure Mean 93 Blood Pressure Mean [Right Arm] Blood Pressure Position [Right Arm] Pulse Oximetry Oxygen Delivery Method 05/15/18 19:41 12/26/18 21:29 Temperature 37.6 C H Temperature Source Oral Sepsis Recent Fever Within 48 Hours Sepsis Action Taken by Nursing Pulse Rate 92 H Pulse Rate [Finger] Pulse Rhythm Regular Pulse Rhythm [Finger] Pulse Strength [Finger] Respiratory Rate 16 Respiratory Effort / Characteristics Non-Labored Spontaneous Respiratory Depth Normal Respiratory Pattern Regular Blood Pressure 109/74 Blood Pressure [Right Arm] Blood Pressure Mean 85 Blood Pressure Mean [Right Arm] Blood Pressure Position [Right Arm] Pulse Oximetry 98 Oxygen Delivery Method Room Air Constitutional: Vital signs reviewed. Eyes: Pupils are equal round reactive to light. Conjunctiva are noninjected. ENT: Pharynx is clear without erythema or exudate. Mucous membranes are dry. Neck supple without meningeal signs. Respiratory: Clear to auscultation bilaterally. Breath sounds are equal bilaterally. Cardiovascular: Regular rate and rhythm. No rubs or gallops. GI: Soft, nondistended and nontender. Bowel sounds are present. Musculoskeletal: No peripheral edema. No lower extremity tenderness. Integumentary: No cyanosis. Neurological: The patient is awake and alert. No focal deficits. Psychiatric: Normal affect. Course 1456: vice president safety, Christopher Mcdonald, went to evaluate the patient in A9B. 1515: Past medical records reviewed. The patient was evaluated in room A9B, and a complete history and physical examination were performed. 1621: I discussed the patient's tests results with her. She denies any chest pain or shortness of breath, but does experience shortness of breath upon exertion. 1653: I reviewed the patient's case with Dr. Ridley, [place] Hospitalist. He will evaluate the patient for further management. Administered Medications Acyclovir (Zovirax) 400 mg PO BID [facility] Stop: 06/14/18 20:59 Last Admin: 05/15/18 21:40 Dose: 400 mg Hydroxyurea (Hydrea) 2,000 mg PO BID [facility] Stop: 06/14/18 20:59 Last Admin: 05/15/18 21:40 Dose: 2,000 mg Trimethoprim/Sulfamethoxazole (Septra Ds 800/160mg Tab) 1 tab PO MoTuWe@0900, 2100 [facility] Stop: 06/14/18 20:08 Last Admin: 05/15/18 21:39 Dose: 1 tab Medical Decision Making Medical Records Attestation: I reviewed the patient's medical records. Home Medications Current Medication List: was personally reviewed by me Laboratory Data Attestation: I reviewed the patient's lab results. Lab Results 05/15/18 05/15/18 Range/Units 15:33 15:33 Troponin I 0.047 H* (0-0.045) ng/ml Blood Type A Negative Antibody Screen NEGATIVE Crossmatch See Detail Imaging Data Radiologist's Impression: Radiology results as stated below per my review and the radiologist's interpretation: CT head/brain wo con CLINICAL HISTORY: 62 years-old Female presenting with syncope/low platelets eval for bleed. TECHNIQUE: Multidetector CT imaging of the head was performed without the use of intravenous contrast. IV contrast: None. A dose lowering technique was used consistent with the principles of ALARA (as low as reasonably achievable). COMPARISON: None. CT DOSE (mGy.cm): The estimated cumulative dose is 537.48 mGy.cm. FINDINGS: Inside Sales Supervisor topogram: Unremarkable. Proportional ventricular and sulcal prominence, likely age-related parenchymal volume loss. No hemorrhage. Brain parenchyma normal in appearance with preserved velázquez-white differentiation. No acute territorial infarct. No mass effect or midline shift. No extra-axial fluid collection. Paranasal sinuses and mastoid air cells clear. Calvarium intact. IMPRESSION: 1. No acute intracranial abnormality. Electronically signed by: Maximo Rocha M.D. 05/15/2018 4:12 PM ECG Data Attestation: I personally reviewed and interpreted this ECG as follows: Indication: syncope Rate (beats per minute): 89 Rhythm: normal sinus Findings: + T-wave inversion (in lead 3); no ST elevation Comparison ECG Date: from (April 30, 2018) Change: no significant change Blood Pressure Blood Pressure Findings: Elevated blood pressure Blood Pressure Disposition: Referred to patients primary care provider MDM Narrative I did perform a limited focused review of portions of the patient's old chart on the electronic medical record. The patient had blood work at 1100 today which showed her HGB at 7.8, platelets at 7, and sodium at 133. I did evaluate the patient as noted above. She had a brief syncopal episode while her blood was being drawn. Her oncologist called the ED and stated that he wanted her transfused platelets and packed RBCs as well as a head CT. IV access was established. The patient was placed on a continuous gambling monitor. I did obtain informed consent for blood transfusion. I did order a unit of packed RBCs and a unit of platelets to be transfused. I did order and personally review the patient's 12-lead EKG as described above. She has no acute ischemic changes. I did order and review the patient's blood work as noted in the electronic medical record. Her troponin is slightly elevated. She denies having any chest pain or shortness of breath. She does have chronic shortness of breath on exertion. I did order a CT of the head. I did review the images myself as well as the radiology report as described above. There is no evidence of acute intracranial hemorrhage. I did discuss the test results with the patient. I did discuss the case with the hospitalist and disease case manager. Impression & Plan Syncope, Elevated troponin, Thrombocytopenia, AML (acute myeloid leukemia), Symptomatic anemia Discharge Plan Visit Data *Final* Discharge Date/Time: 05/15/18 19:31 Chief Complaint: Animal Bite Stated Complaint: LOW PLATLETS, NOSE BLEEDS ED Provider: Onofre Brasher Discharge Problem: Syncope, Elevated troponin, Thrombocytopenia, AML (acute myeloid leukemia), Symptomatic anemia Patient Disposition: Still a Patient Discharge Instructions Interventions: ED Discharge Assessment Last Done: 05/15/18 19:31 The scribe's documentation has been prepared under my direction and personally reviewed by me in its entirety. I confirm that the note above accurately reflects all work, treatment, procedures, and medical decision making performed by me.
[2018-05-16 06:30] LABS: INR 1.1 (0.9-1.1); Partial Thromboplastin Time 25.4 Seconds (21.0-31.0)
[2018-05-16 06:34] LABS: Albumin Level 2.6 gm/dl (3.4-5.0); BUN Creatinine Ratio 16.8 (10-20); Calcium 8.3 mg/dl (8.5-10.1); Creatinine Clr Calc Pharmacy 93.7 ml/min; Est GFR (African American) 114.7; Est GFR (Non-African American) 98.9; Potassium 3.6 mmol/L (3.5-5.1)
[2018-05-16 06:37] LABS: Albumin Globulin Ratio 0.9 (0.9-2); Bilirubin,Total 0.4 mg/dl (0.1-1); Total Protein 5.6 gm/dl (6.4-8.2)
[2018-05-16 06:46] LABS: Hematocrit (blood only) 23.6 % (37-47); Mean Corpuscular Hgb Conc 33.9 g/dL (32-36); Mean Corpuscular Volume 83.7 fL (80-100); Mean Platelet Volume 8.8 fL (7.4-10.4); Platelet Count 66 K/uL (130-400); RDW Coefficient of Variation 17.2 % (11.5-14.5); RDW Standard Deviation 51.9 fL (36.4-46.3); Red Blood Count 2.82 M/uL (4.2-5.4); White Blood Count 8.17 K/uL (4.8-10.8)
[2018-05-16 07:20] LABS: Anisocytosis Present; Spherocytes 1+
[2018-05-16 07:30] LABS: ALC (manual) 0.13 K/uL (1.2-3.4); Blast # (manual) 8.04 K/uL (0-0); Blast Cells % (manual) 98.4 %; Lymphocytes # (manual) 0.13 K/uL (1.2-3.4); Lymphocytes % (manual) 1.6 %
[2018-05-16] MEDS: ACYCLOVIR 400 MG TAB PO SCH (08:45)
[2018-05-16] MEDS: HYDROXYUREA 500 MG CAP PO SCH (08:46)
[2018-05-16] MEDS ORDERED: SIROLIMUS 0.5 MG TABLET PO SCH (09:00)
[2018-05-16] MEDS ORDERED: MAGNESIUM CHLORIDE 64MG DELAYED REL TAB PO SCH (09:00)
--- NOTE | 2018-05-16 09:31 | Consultation Report ---
DATE OF CONSULTATION: 05/16/2018 HEMATOLOGY CONSULTATION REASON FOR CONSULTATION: Syncopal episode in a pleasant 62-year-old female patient with refractory acute myelogenous leukemia. HISTORY OF PRESENT ILLNESS: The patient is a pleasant 62-year-old AML patient of Dr. Chandrakant Ojeda's who apparently was admitted to [facility] yesterday after suffering a brief syncopal episode during laboratory draw. The patient was in our facility for routine laboratory draw, had a brief syncopal episode and reported possible seizure activity, and thus, the patient was admitted on observational status. This unfortunate 62-year-old female was diagnosed with acute myelogenous leukemia back in 04/2017. She had undergone induction and 2 cycles of consolidative HiDAC which led to disease progression. 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 Unfortunately, she relapsed shortly after engraftment. She has had a multitude of salvage agents, most recently Mylotarg that was given a couple of weeks ago and now is on a high-dose hydroxyurea because of expanding blast proliferation. This lady is transfusion dependent of both packed RBCs and platelets. She has received 1 unit thus far. Her hemoglobin remains at 8.0. Her transfusion threshold set by the transplant physicians at [facility] is 8.5. The patient becomes symptomatic when her hemoglobin enters the 8 range generally. Her platelets are presently adequate at 66,000. Clinically, she is feeling well. She reports no fevers, chills or sweats. She denies abdominal pain, diarrhea or constipation at this time. I believe the plan moving forward is the incorporation of Dacogen in combination with Venclexta. Her treatment decisions will be made by Dr. Jimenez and Dr. Ojeda collectively. PAST MEDICAL HISTORY: Again, significant for acute myelogenous leukemia, status post allogeneic peripheral blood stem cell transplant, deep vein thromboses. CURRENT MEDICATIONS: Include acyclovir 400 mg p.o. b.i.d., Xanax 0.5 mg p.o. at bedtime p.r.n., hydroxyurea 2000 mg p.o. b.i.d., Cresemba 372 mg p.o. daily, sirolimus 2 mg p.o. daily, magnesium chloride 4 tablets p.o. daily, Bactrim-DS 1 tablet p.o. daily. ALLERGIES: VANCOMYCIN. SOCIAL HISTORY: The patient was employed at [employer]. She is . She is a nonsmoker, nondrinker. FAMILY HISTORY: Noncontributory. REVIEW OF SYSTEMS: CONSTITUTIONAL: Again, positive for a syncopal episode during laboratory draw. Denies fevers, chills or sweats. She is not anorexic or presently losing weight. SKIN: No active rashes or lesions. She does have quite a bit of purpura encompassing her forearms bilaterally. HEENT: Again, negative for headaches, lightheadedness or dizziness at present. No acute visual or hearing deficit. She wears corrective lenses. No sinus symptoms, sore throat or dysphagia. Positive for epistaxis. LYMPHATICS: No history of lymphoproliferative disease. CARDIAC: No history of coronary artery disease, no angina or palpitations. PULMONARY: She is not short of breath, dyspneic or orthopneic. She reports no cough or hemoptysis. GASTROINTESTINAL: She denies abdominal pain, nausea, vomiting, diarrhea or constipation. No hematochezia or melanotic stools. GENITOURINARY: No hematuria, dysuria or urinary incontinence. PSYCHIATRIC: Negative for anxiety, depression or psychoses. ENDOCRINE: Negative for diabetes or thyroid disease. NEUROLOGIC: Negative for seizure, stroke or migraine headache by history. HEMATOLOGIC: Positive for anemia and thrombocytopenia attributable to her primary disease and ongoing treatments. PHYSICAL EXAMINATION: GENERAL: Very pleasant 62-year-old female patient in no acute distress. VITAL SIGNS: Temperature 38.6, pulse 92, respiratory rate 20, blood pressure 121/69. SKIN: Warm, dry, noncyanotic. Again, scattered purpura seen in her forearms bilaterally consistent with senile purpura. HEENT: Head is atraumatic, normocephalic. Eyes: PERRLA, EOMI. Sclerae nonicteric. No conjunctival injection. Nares are patent without rhinorrhea or discharge. Throat clear. Tongue midline. No buccal lesions or ulcerations. No evidence of thrush. NECK: Supple. Trachea midline. No JVD or thyromegaly. LYMPHATICS: No cervical or supraclavicular or axillary palpable nodes. HEART: Regular rate and rhythm. No clicks, rubs, murmurs or gallops. LUNGS: Clear to auscultation bilaterally. ABDOMEN: Soft, nontender, nondistended, without palpable hepatosplenomegaly. EXTREMITIES: No calf tenderness or swelling. No clubbing, cyanosis or edema. MUSCULOSKELETAL: Strength and pulses are equal in all 4 quadrants. NEUROLOGICAL: She is awake, alert and oriented x3. Cranial nerves II-XII are intact. LABORATORY DATA: WBC count 8170, hemoglobin 8, platelet count 66,000. Absolute neutrophils 0, blast percentage approximately 98%. Coags are within normal limits. Sodium 135, potassium 3.6, chloride 104, carbon dioxide 21, BUN 10, creatinine 0.59, albumin 2.6. RADIOGRAPHIC DATA: CT scan of the head: No evidence of intracranial bleed. IMPRESSION: 1. Syncope. 2. Relapsed acute myelogenous leukemia. 3. Cytopenias attributable to disease relapse, anemia/thrombocytopenia. 4. Hypoalbuminemia. 5. Status post allogeneic peripheral blood stem cell transplant. PLAN: The patient is a pleasant but unfortunate 62-year-old female patient of Dr. Chandrakant Ojeda'sera with refractory AML. Apparently suffered a brief syncopal episode during laboratory draw and was found to be profoundly anemic. The patient has received 1 unit of packed RBCs and 2 plateletphereses. Her platelet count has come up nicely, currently at 66,000. The patient's hemoglobin is 8.0 at present. The patient becomes symptomatic in the 8 range, and therefore, we will recommend an additional unit of packed RBCs prior to discharge. The patient presently is without significant fever and she is otherwise asymptomatic. As long as she is able to ambulate without feeling lightheaded, I see no reason to keep her from a medical standpoint. Obviously with no neutrophils, she is at significant risk for emerging infection, but ultimately would be safer at home than developing an acquired hospital infection. If she would develop a fever as an outpatient, she should return to the hospital for burk culture and broad spectrum antibiotics and antifungals. I have nothing further to add at this time. Thank you very much for allowing me to participate in her care. I will report her clinical status to Dr. Ojeda. SANDI
[2018-05-16 10:56] VITALS: O2SAT 98
[2018-05-16 11:00] VITALS: TEMP 97.9
[2018-05-16 11:34] VITALS: BP 121/69; PULSE 92
[2018-05-16 12:05] LABS: Appearance Urine Clear (Clear); Bilirubin Urine Negative (Negative); Color Urine Yellow; Glucose Urine UA Negative (Negative); Ketones Urine Negative (Negative); Leukocyte Esterase Urine Negative (Negative); Nitrite Urine Negative (Negative); Protein Urine Negative (Negative); Specific Gravity Urine 1.009 (1.000-1.030); Urobilinogen Urine Negative (Negative)
--- NOTE | 2018-05-16 16:07 | Discharge Summary ---
Date of Service May 16, 2018 Admission HPI Per Admitting Provider The patient is a 62-year-old female with a past medical history including AML in relapse, with her last chemo treatment 5 days ago, who was at Dr. Ojeda' s office today, when she passed out while sitting in a chair. She has had recurrent episodes of nosebleeds, was found to have platelets of 7 and hemoglobin 7.8, and was referred to the emergency department for assessment, treatment and admission. Principal Diagnosis Syncope, anemia Discharge Exam Constitutional WD/WN, vitals as above Eyes EOM intact bilaterally; no conjunctival abnormality ENMT external ear and nose normal, oropharynx normal Neck trachea midline, no thyromegaly normal visual inspection Respiratory normal respiratory effort, lungs clear to auscultation no respiratory distress Cardiovascular RRR, no murmur, no edema Gastrointestinal (Abdomen) Inspection/Auscultation: abdomen normal to inspection; abdomen not distended Musculoskeletal no cyanosis or clubbing, extremities motor strength 5/5 Skin no rashes, warm and dry Neurologic moves all extremities and awake Psychiatric Orientation: alert, oriented to person and cooperative Discharge Data Allergies Allergy/AdvReac Type Severity Reaction Status Date / Time vancomycin Allergy Mild Full body Verified 05/15/18 15:22 rash Consultations 05/15/18 16:35 ED Decision to Admit Stat 05/15/18 20:09 Consult Hematology Routine Ordered Studies 05/15/18 15:20 CT head/brain wo con Stat Hospital Course (1) Syncope: Syncope likely related to her symptomatic anemia. She was given 2 units of PRBCs with no real improvement in her hgb (7.8 -> 8.0), and got [address] Berman prior to discharge. Her plts were 7 on admission, given 2 units of platelets, and they jumped to 65. No further platelets needed and no signs of bleeding on admission. Seen by Dr. Berman who cleared the patient to go. (2) AML (acute myeloid leukemia): Transfused as above. On 05/16, she had a fever to 38.6 which resolved on its own. Despite her ANC of 0, she declined full neutropenic fever work-up, and only consented to a set of blood cultures and a urine culture. I counseled her on why I thought it was important to remain in the hospital. I discussed this with Dr. Berman who agreed that she could be discharged, thus I did not make her leave AMA, but again reiterated why I thought this was not the wisest course of action. Despite this, Ms. Herman chose to leave, and I beleive she had full decision-making capability at the time. I strongly encouraged her to follow up with Dr. Ojeda this weak to check her blood counts and for any signs/ symptoms of infection. Blood cultures were drawn 1 from her PICC (which has been in place since the summer) and one peripheral. (3) Thrombocytopenia: Transfuse platelets as noted above. Only signs of bleeding is been a light amount of epistaxis. On discharge, no bleeding. (4) Symptomatic anemia: As above (5) Elevated troponin: Troponin upon admission 0.047 is the lowest that has been over the past few weeks. She had no chest pain, and shortness of breath improved with 3 units of PRBCs. No further inpatient testing. Total Time Total Time Spent Total Time Spent (In Minutes): 45 Total Time Includes: Examination of the Patient, Discharge Planning, Medication Reconciliation and Communication With Other Providers Discharge Plan Discharge Items Patient Disposition: Home - Self-Care Reason For Visit: Syncope Discharge Diagnosis: Syncope & anemia Discharge Goals: Decrease discomfort and Improve function Activity: Resume your previous activity Non-emergency contact: Primary Care Provider and Oncologist Call non-emergency contact if: you have any medication questions Follow-up/Referrals: Chandrakant Ojeda [Physician] - (Please see Dr. Oejda this week.) Diet: Regular Addtl Provider Instructions: Ms. Herman, Mirza were admitted to the hospital after having a fainting episode at Dr. Jackie South's office. We found your blood counts to be very low, likely from your leukemia and the chemotherapy. We gave you 3 units of red blood cells and 2 units of platelets. Your platelets came back up, but your red blood cells stayed somewhat low at ~8. You had a fever while in the hospital which is concerning because your neutrophil count is suppressed from the chemotherapy. We discussed this, and I would have preferred you stay in the hospital, but you declined to do so. I discussed this with Dr. Berman. We will draw cultures of your blood and of your urine, but still send you home. We will continue your prophylactic antibiotics, but not add any others at this time. I would like you to see Dr. Ojeda in his office this week to be sure your blood counts are staying stable and to be sure you are not having any signs of infection and to follow up the cultures we take today. Please return to the hospital or call with any more lightheadedness, dizziness, fevers, chills, sweats, any shortness of breath, chest pain, or abdominal pain, or if you have any other concerning symptoms. Prescriptions: Continue hydroxyurea 500 mg capsule 2,000 mg PO BID RF: 0 acyclovir [Zovirax] 400 mg tablet 400 mg PO BID RF: 0 sulfamethoxazole-trimethoprim [Bactrim DS] 800-160 mg tablet 1 tab PO UD RF: 0 alprazolam [Xanax] 0.5 mg Tablet 0.5 mg PO HS PRN (Reason: Anxiety) RF: 0 sirolimus [Rapamune] 0.5 mg tablet 2 mg PO DAILY RF: 0 magnesium chloride [Slow-Mag] 71.5 mg Tablet,Delayed Release (Dr/Ec) 4 tabs PO DAILY RF: 0 isavuconazonium sulfate [Cresemba] 186 mg capsule 372 mg PO DAILY RF: 0 Visit Report Forms: My [facility] Portal Stand-Alone Forms: My [facility] Discharge Orders: Discharge Order (Routine); Ordered 05/16/18 Ordered By: Mat Modi Admission Data Admit Date/Time: 05/15/18 17:38 Attending Provider: Mat Modi Admit Provider: Milton Solis Primary Care Provider: PCP,NO Other Providers: Chandrakant Ojeda ; Mat Modi Service: Telemetry Other Interventions: Discharge Summary Assessment (RN) Last Done: 05/16/18 11:32 DC Date/Time DO NOT enter until pt leaves facility: 05/16/18 12:52
[2018-05-16] MEDS ORDERED: CRESEMBA PO SCH (23:00)
== END 2018-05-16 12:52 | disposition home or self-care (01) | DRG 835 ==
LOC: ED 13:06 → 2E 13:06 → SUATTDRO 17:38 → OBSVTOIN 17:38 → 2E 19:31

== ENCOUNTER 2018-07-30 09:33 | Inpatient (IN) ==
[2018-07-30] MEDS ORDERED: SODIUM CHLORIDE 0.9% 500 ML IV SCH (10:00)
[2018-07-30 11:13] LABS: Hematocrit (blood only) 21.2 % (37-47); Hemoglobin 7.5 g/dL (12.0-16.0); Mean Corpuscular Hgb Conc 35.4 g/dL (32-36); Mean Corpuscular Volume 81.2 fL (80-100); Platelet Count 34 K/uL (130-400); RDW Coefficient of Variation 17.2 % (11.5-14.5); RDW Standard Deviation 51.3 fL (36.4-46.3); Red Blood Count 2.61 M/uL (4.2-5.4); White Blood Count 0.61 K/uL (4.8-10.8)
--- NOTE | 2018-07-30 11:14 | XRay Report ---
XR chest 1V portable CLINICAL HISTORY: Cough. COMPARISON STUDY: Chest radiograph June 30, [address] July 01, 2018. FINDINGS: Cardiomediastinal silhouette is stable. There are trace bilateral pleural effusions. There is no pneumothorax. There has been interval development of bilateral airspace opacities, more pronoun delilah within the right lung. There is also suggestion of pulmonary vascular congestion. IMPRESSION: 1. Interval development of multifocal airspace opacities which favors pneumonia. 2. Pulmonary vascular congestion with possible mild pulmonary edema. 3. Trace bilateral pleural effusions. Electronically signed by: Alphonso Gallagher M.D. 07/30/2018 11:12 AM
[2018-07-30 11:29] LABS: ALC (manual) 0.09 K/uL (1.2-3.4); Hypogranular Neutrophils 1+; Lymphocytes # (manual) 0.09 K/uL (1.2-3.4); Microcytosis Present; Toxic Vacuolation 1+
[2018-07-30 11:59] LABS: INR 1.4 (0.9-1.1)
[2018-07-30 12:11] LABS: Albumin Level 1.3 gm/dl (3.4-5.0); BUN Creatinine Ratio 24.6 (10-20); Calcium 7.5 mg/dl (8.5-10.1); Est GFR (African American) 51.8; Est GFR (Non-African American) 44.7; Potassium 3.3 mmol/L (3.5-5.1)
[2018-07-30 12:26] LABS: Albumin Globulin Ratio 0.4 (0.9-2); Bilirubin,Total 0.8 mg/dl (0.2-1); Globulin 3.6 gm/dl (2.5-4.0); Total Protein 4.9 gm/dl (6.4-8.2); Troponin I 0.068 ng/ml (0-0.045)
--- NOTE | 2018-07-30 12:44 | Emergency Department Note ---
Entered by Kemi Munguia acting as a scribe for Americo Wiggins DO History of Present Illness General Chief complaint: Illness Stated complaint: fever/ams Time Seen by Provider: 07/30/18 09:37 Source: patient History of Present Illness Provider complaint: confusion Onset (ago): day(s) (today) Location: head Pain Consistency: + other (persistent) Quality: + other (confusion) Associated symptoms: + other (cough, chest pain, fever) The patient is a 62 year old female who presents to the Emergency Room with complaints of persistent confusion beginning today. She reports she was unsure what year it was earlier today, and her caretakers at [facility] sent her to the ED. The patient notes a cough and chest pain, beginning a couple days ago. Nursing notes report the patient had a fever of 101.8F this morning. The patient is currently taking Daptomycin and Zosyn. Home Medications Home Medications Medication Instructions Recorded Confirmed Type acyclovir 400 mg PO BID 06/27/18 07/30/18 History alprazolam 0.25 mg PO HS PRN 06/27/18 07/30/18 History isavuconazonium sulfate 372 mg PO QAM 06/27/18 07/30/18 History metronidazole [Flagyl] 500 mg PO Q8 06/27/18 07/30/18 History sennosides-docusate sodium 1 tab PO BID PRN 06/27/18 07/30/18 History [Senna-S] sirolimus 2 mg PO QAM 06/27/18 07/30/18 History Refresh Tears 1 drp OPB Q1H PRN 06/30/18 07/30/18 History gilteritinib 120 mg PO QAM 06/30/18 07/30/18 History Magic Swizzle 1 dose PO Q6H 07/30/18 07/30/18 History acetaminophen [Tylenol Extra 500 mg PO Q4H PRN 07/30/18 07/30/18 History Strength] atovaquone 1,500 mg PO QDL 07/30/18 07/30/18 History celecoxib 200 mg PO BID 07/30/18 07/30/18 History daptomycin 350 mg IV DAILY@1800 07/30/18 07/30/18 History lansoprazole 30 mg PO QDL 07/30/18 07/30/18 History magnesium chloride 256 mg PO HS 07/30/18 07/30/18 History magnesium hydroxide [Milk of 30 ml PO DAILY PRN 07/30/18 07/30/18 History Magnesia] oxycodone 10 mg PO Q3H PRN 07/30/18 07/30/18 History piperacillin-tazobactam [Zosyn] 4.5 g IV Q8H 07/30/18 07/30/18 History prednisone 30 mg PO HS 07/30/18 07/30/18 History Allergies Allergy/AdvReac Type Severity Reaction Status Date / Time vancomycin Allergy Mild Full body Verified 07/30/18 10:50 rash red meat AdvReac Unknown Uncoded 07/30/18 10:50 Past Med/Surg History Medical History Metabolic acidosis Chronic diastolic heart failure Hypotension Electrolyte abnormality Erythematous rash Gram-positive bacteremia 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 Pancytopenia (Acute) Rectal cyst Neutropenic fever (Acute) Anxiety AML (acute myeloid leukemia) (Chronic) Symptomatic anemia (Acute) Acute myeloid leukemia (Acute) Central venous catheter in place (Acute) DVT (deep venous thrombosis) (Acute) Surgical History History of allogeneic stem cell transplant History of stem cell transplant Family History Father Heart attack Social History Preferred Language: Botswan[place] Beliefs That Will Affect Care: None marital status: Current Living Situation: Spouse Feels Safe at Home: Yes Smoking Status: Never smoker Hx Alcohol Use: No Hx Substance Use: No Review of Systems See HPI for pertinent positives & negatives. and A total of 10 systems reviewed and were otherwise negative Physical Exam Vital Signs Vital Signs - 24 hr 07/30/18 09:39 07/30/18 11:44 Temperature 36.7 C Temperature Source Oral Sepsis Recent Fever Within 48 Hours No Sepsis New/Unexplained Change in Mental Status No Sepsis Action Taken by Nursing No Action Required Pulse Rate 114 H Pulse Rate [Apical] 105 H Respiratory Rate 16 16 Respiratory Depth Normal Blood Pressure 120/60 Blood Pressure [Right Thigh] 128/73 Blood Pressure Mean 80 Blood Pressure Mean [Right Thigh] 91 Blood Pressure Position Lying Pulse Oximetry 95 97 Oxygen Delivery Method Room Air Room Air CONSTITUTIONAL/VITAL SIGNS: Reviewed / noted above. GENERAL: Non-toxic in appearance. Generalized weakness. INTEGUMENTARY: Warm, dry, and [place]. HEAD: Normocephalic. EYES: without scleral icterus or trauma. ENT/OROPHARYNX: clear and moist. LYMPHADENOPATHY/NECK: Is supple without lymphadenopathy or meningismus. RESPIRATORY: Lungs clear and equal. CARDIOVASCULAR: Regular rate and rhythm. GI/ABDOMEN: Soft and nontender. No organomegaly or pulsatile mass. No rebound or guarding. Normal bowel sounds. EXTREMITIES: Warm and well perfused. BACK: No CVA tenderness. NEUROLOGICAL: Intact without focal deficits. PSYCHIATRIC: normal affect. MUSCULOSKELETAL: Normally developed with good muscle tone. Course 0939: Past medical records reviewed. The patient was evaluated in room C4, and a complete history and physical examination were performed. 1228: Upon reevaluation, the patient is resting. I discussed test results. They verbalized agreement with the treatment plan. 1307: I reviewed the patient's case with Dr. Juarez, [facility] hospitalist. She will evaluate the patient for further management. Consultations Consultation #1: I reviewed the patient's case with Dr. Juarez, [facility] hospitalist. She will evaluate the patient for further management. Time: 13:07 Administered Medications Discontinued Medications Sodium Chloride (Nss) 500 mls @ 999 mls/hr IV .Q31M HUMA Stop: 07/30/18 10:30 Last Infusion: 07/30/18 11:02 Dose: 0 mls/hr Documented by: [id number] Admin: 07/30/18 10:30 Dose: 999 mls/hr Documented by: [id number] Medical Decision Making Differential Diagnosis Differential includes viral illness, influenza, streptococcal pharyngitis, meningitis, pneumonia, sinusitis, UTI, pyelonephritis, otitis media. Medical Records Attestation: I reviewed the patient's medical records. Home Medications Current Medication List: was personally reviewed by me Laboratory Data Attestation: I reviewed the patient's lab results. Result diagrams: 07/30/18 10:18 07/30/18 11:40 Lab Results 07/30/18 07/30/18 07/30/18 Range/Units 09:50 10:18 10:18 WBC 0.61 L* (4.8-10.8) K/uL RBC 2.61 L (4.2-5.4) M/uL Hgb 7.5 L (12.0-16.0) g/dL Hct 21.2 L (37-47) % MCV 81.2 (80-100) fL MCH 28.7 (25-34) pg MCHC 35.4 (32-36) g/dL RDW Std Deviation 51.3 H (36.4-46.3) fL RDW Coeff of [place] 17.2 H (11.5-14.5) % Plt Count 34 L (130-400) K/uL Neutrophils % (Manual) 70.0 % Lymphocytes % (Manual) 14.0 % Monocytes % (Manual) 16.0 % Neutrophils # (Manual) 0.43 L (1.4-6.5) K/uL Total Absolute Neuts 0.43 L* (1.4-6.5) K/uL Lymphocytes # (Manual) 0.09 L (1.2-3.4) K/uL Total Abs Lymphocytes 0.09 L (1.2-3.4) K/uL Monocytes # (Manual) 0.10 L (0.11-0.59) K/uL Hypogranular Neuts 1+ Toxic Vacuolation 1+ Microcytosis Present PT Cancelled INR Cancelled Sodium Potassium Chloride Carbon Dioxide Anion Gap BUN Creatinine Est Cr Clr Drug Dosing Est GFR ( Amer) Est GFR (Non-Af Amer) BUN/Creatinine Ratio Glucose Calcium Total Bilirubin AST ALT Alkaline Phosphatase Troponin I Total Protein Albumin Globulin Albumin/Globulin Ratio Lipase Influenza Type A Ag Neg for Influ A (Neg) Influenza Type B Ag Neg for Influ B (Neg) 07/30/18 07/30/18 07/30/18 Range/Units 10:18 11:40 11:40 WBC (4.8-10.8) K/uL RBC (4.2-5.4) M/uL Hgb (12.0-16.0) g/dL Hct (37-47) % MCV (80-100) fL MCH (25-34) pg MCHC (32-36) g/dL RDW Std Deviation (36.4-46.3) fL RDW Coeff of [place] (11.5-14.5) % Plt Count (130-400) K/uL Neutrophils % (Manual) % Lymphocytes % (Manual) % Monocytes % (Manual) % Neutrophils # (Manual) (1.4-6.5) K/uL Total Absolute Neuts (1.4-6.5) K/uL Lymphocytes # (Manual) (1.2-3.4) K/uL Total Abs Lymphocytes (1.2-3.4) K/uL Monocytes # (Manual) (0.11-0.59) K/uL Hypogranular Neuts Toxic Vacuolation Microcytosis PT 14.0 H INR 1.4 H Sodium Cancelled 134 L Potassium Cancelled 3.3 L Chloride Cancelled 103 Carbon Dioxide Cancelled 21 Anion Gap Cancelled 10.0 BUN Cancelled 32 H Creatinine Cancelled 1.29 H Est Cr Clr Drug Dosing Cancelled 44.0 Est GFR ( Amer) Cancelled 51.8 Est GFR (Non-Af Amer) Cancelled 44.7 BUN/Creatinine Ratio Cancelled 24.6 H Glucose Cancelled 96 Calcium Cancelled 7.5 L Total Bilirubin Cancelled 0.8 AST Cancelled 71 H ALT Cancelled 40 Alkaline Phosphatase Cancelled 327 H Troponin I Cancelled 0.068 H* Total Protein Cancelled 4.9 L Albumin Cancelled 1.3 L Globulin Cancelled 3.6 Albumin/Globulin Ratio Cancelled 0.4 L Lipase Cancelled 235 Influenza Type A Ag (Neg) Influenza Type B Ag (Neg) Imaging Data Attestation: I personally reviewed and interpreted this imaging study as follows: Radiologist's Impression: Radiology results as stated below per my review and the radiologist's interpretation: XR chest 1V portable CLINICAL HISTORY: Cough. COMPARISON STUDY: Chest radiograph June 30, [address] July 01, 2018. FINDINGS: Cardiomediastinal silhouette is stable. There are trace bilateral pleural effusions. There is no pneumothorax. There has been interval development of bilateral airspace opacities, more pronounced within the right lung. There is also suggestion of pulmonary vascular congestion. IMPRESSION: 1. Interval development of multifocal airspace opacities which favors pneumonia. 2. Pulmonary vascular congestion with possible mild pulmonary edema. 3. Trace bilateral pleural effusions. Electronically signed by: Alphonso Gallagher M.D. 07/30/2018 11:12 AM Blood Pressure Blood Pressure Findings: Normal blood pressure Blood Pressure Disposition: did not require urgent referral MDM Narrative This is a 62-year-old female who presents to the ED with a chief complaint of a cough and some alteration in mental status, according to [facility] rehab. The patient has recently been treated for a PICC line infection at [facility]. She is currently on IV daptomycin and IV Zosyn. The patient was just readmitted to [facility] a couple of days ago. She has a history of AML as well as a history of stem cell transplant. She has a perianal abscess as well that is ongoing and chronic. She is currently on chemotherapy. The patient's exam as noted above. A chest x-ray reveals a multifocal pneumonia. BUN is 32 and creatinine is 1.29. Flu swab was negative. White blood cell count is 0.66. ANC is 0.43. Hemoglobin is 7.5. Platelet count is 34. The patient was hydrated with IV fluids. The patient was told the results of the test. According to the patient and her who is present, the patient wants to go on hospice and does not want additional treatment for her ailments. The patient's needs a couple of days to set things up at home and is requesting the patient stay here until she gets hospice set up at home where she wants the patient to go. I spoke with the hospitalist who will see the patient. Impression & Plan Bilateral pneumonia, Neutropenia Discharge Plan Visit Data Chief Complaint: Illness Stated Complaint: fever/ams ED Provider: Americo Wiggins Discharge Problem: Bilateral pneumonia, Neutropenia Patient Disposition: Being Evaluated by Hospitalist Forms Stand Alone Forms: [facility] Prescriptions Prescriptions: No Action Refresh Tears 0.5 % Drops 1 drp OPB Q1H PRN (Reason: Dry Eye(S)) RF: 0 gilteritinib 40 mg Tablet 120 mg PO QAM RF: 0 sennosides-docusate sodium [Senna-S] 8.6-50 mg Tablet 1 tab PO BID PRN (Reason: Constipation) RF: 0 metronidazole [Flagyl] 250 mg Tablet 500 mg PO Q8 RF: 0 alprazolam 0.25 mg Tablet 0.25 mg PO HS PRN (Reason: Anxiety) RF: 0 acyclovir 200 mg Capsule 400 mg PO BID RF: 0 sirolimus 0.5 mg Tablet 2 mg PO QAM RF: 0 isavuconazonium sulfate 186 mg Capsule 372 mg PO QAM RF: 0 celecoxib 200 mg capsule 200 mg PO BID RF: 0 prednisone 10 mg Tablet 30 mg PO HS RF: 0 acetaminophen [Tylenol Extra Strength] 500 mg Tablet 500 mg PO Q4H PRN (Reason: pain/fever) RF: 0 magnesium hydroxide [Milk of Magnesia] 400 mg/5 mL Suspension 30 ml PO DAILY PRN (Reason: Constipation) RF: 0 piperacillin-tazobactam [Zosyn] 4.5 gram Recon Soln 4.5 g IV Q8H RF: 0 lansoprazole 15 mg capsule,delayed release(DR/EC) 30 mg PO QDL RF: 0 atovaquone 750 mg/5 mL suspension 1,500 mg PO QDL RF: 0 oxycodone 5 mg Tablet 10 mg PO Q3H PRN (Reason: Pain (Scale Score 4-6)) RF: 0 magnesium chloride 64 mg Tablet,Delayed Release (Dr/Ec) 256 mg PO HS RF: 0 Magic Swizzle 1 dose PO Q6H RF: 0 daptomycin 500 mg recon soln 350 mg IV DAILY@1800 RF: 0 Referrals Referrals: PCP,NO [Primary Care Provider] - Discharge Problem: Bilateral pneumonia Qualifiers: Pneumonia type: due to unspecified organism Lung location: unspecified part of lung Qualified Code(s): J18.9 - Pneumonia, unspecified organism Neutropenia Qualifiers: Neutropenia type: secondary to cancer chemotherapy Qualified Code(s): D70.1 - Agranulocytosis secondary to cancer chemotherapy The scribe's documentation has been prepared under my direction and personally reviewed by me in its entirety. I confirm that the note above accurately reflects all work, treatment, procedures, and medical decision making performed by me.
[2018-07-30] MEDS ORDERED: ACETAMINOPHEN 500 MG TAB PO STA (13:56)
--- NOTE | 2018-07-30 14:02 | Palliative Care Consultation ---
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 Patient was just in hospital two separate times during June 2018 with neutropenic fever and other complications. She is seen by Dr. Ojeda for heme/onc. She was undergoing treatment for her AML and other problems but unfortunately has continued to decline overall. She entered [facility] acute rehab hospital to try and get stronger so she could continue her treatment. However, she has not been able to tolerate therapies and continues to have fevers and episodes of severe fatigue and somnolence. She woke up today and "just couldn't do it any more." In the ED, workup reveals severe neutropenia with ANC 0.43. WBC 0.61, H/H 7.5/21.2, Plt 34, BUN/Cr 32/1.29, albumin 1.3, troponin slightly elevated at 0.068. CXR revealed BL airspace opacities favoring pneumonia and pulmonary vascular congestion. Palliative care was contacted as patient and her , Nereida, are wanting to get patient home on hospice. -Met with the patient and her in room C-4. Patient is awake, only slightly drosy. Oriented x4 but does have some forgetfulness. Patient and , Nereida, both agree that the goal is to get patient home with hospice. However, they will need a couple days to get the home ready and get 24/[address] through [facility]. Nereida has already contacted [facility]. automotive general sales manager has made the referral [facility]. -Patient will likely be admitted by hospitalist group. Please continue all her regular medications and anti-infectives for now. Patient and want to buy as much time as possible in order to be able to get her home, where patient wants to . She will not be full "comfort measures only," but a comfort-centered approach should be taken. Patient does not want to go through extensive/invasive/aggressive diagnostics or treatment, but rather continue her maintenance treatment until she is able to get home. If unwanted side effects come up, can talk about discontinuing certain treatments while here. Patient and family do understand that once she goes home with hospice, aggressive treatment stops. -Discussed CODE STATUS. Patient does not want CPR or intubation. We will make her a DO NOT RESUSCITATE. -We will continue to follow during hospitalization and assist in any way possible with this aris patient and her . 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 I was present during the entire visit along with patient's spouse and COOPER Peralta Discuss CODE STATUS-patient does not want to be intubated, received chest compressions or shock. PE: Patient awake and alert, oriented HEENT: EOMI, normal hearing Respiratory: Coarse cough, unlabored CV: Tachycardic Abdomen: Not distended Neuro: Alert and oriented x4 Patient's goal is to see her mother, return home as soon as possible and enjoy whatever time she has left with her spouse and dogs. 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 Patient was just in hospital two separate times during June 2018 with neutropenic fever and other complications. She is seen by Dr. Ojeda for heme/onc. She was undergoing treatment for her AML and other problems but unfortunately has continued to decline overall. She entered [facility] rehab hospital to try and get stronger so she could continue her treatment. However, she has not been able to tolerate therapies and continues to have fevers and episodes of severe fatigue and somnolence. She woke up today and "just couldn't do it any more." In the ED, workup reveals severe neutropenia with ANC 0.43. WBC 0.61, H/H 7.5/21.2, Plt 34, BUN/Cr 32/1.29, albumin 1.3, troponin slightly elevated at 0.068. CXR revealed BL airspace opacities favoring pneumonia and pulmonary vascular congestion. Palliative care was contacted as patient and her , Nereida, are wanting to get patient home on hospice. Thank you kindly for consulting us on this aris patient and her spouse. Allergies Allergy/AdvReac Type Severity Reaction Status Date / Time vancomycin Allergy Mild Full body Verified 07/30/18 10:50 rash red meat AdvReac Unknown Uncoded 07/30/18 10:50 Home Medications Home Medications Medication Instructions Recorded Confirmed Type acyclovir 400 mg PO BID 06/27/18 07/30/18 History alprazolam 0.25 mg PO HS PRN 06/27/18 07/30/18 History isavuconazonium sulfate 372 mg PO QAM 06/27/18 07/30/18 History metronidazole [Flagyl] 500 mg PO Q8 06/27/18 07/30/18 History sennosides-docusate sodium 1 tab PO BID PRN 06/27/18 07/30/18 History [Senna-S] sirolimus 2 mg PO QAM 06/27/18 07/30/18 History Refresh Tears 1 drp OPB Q1H PRN 06/30/18 07/30/18 History gilteritinib 120 mg PO QAM 06/30/18 07/30/18 History Magic Swizzle 1 dose PO Q6H 07/30/18 07/30/18 History acetaminophen [Tylenol Extra 500 mg PO Q4H PRN 07/30/18 07/30/18 History Strength] atovaquone 1,500 mg PO QDL 07/30/18 07/30/18 History celecoxib 200 mg PO BID 07/30/18 07/30/18 History daptomycin 350 mg IV DAILY@1800 07/30/18 07/30/18 History lansoprazole 30 mg PO QDL 07/30/18 07/30/18 History magnesium chloride 256 mg PO HS 07/30/18 07/30/18 History magnesium hydroxide [Milk of 30 ml PO DAILY PRN 07/30/18 07/30/18 History Magnesia] oxycodone 10 mg PO Q3H PRN 07/30/18 07/30/18 History piperacillin-tazobactam [Zosyn] 4.5 g IV Q8H 07/30/18 07/30/18 History prednisone 30 mg PO HS 07/30/18 07/30/18 History Patient History Medical History Metabolic acidosis Chronic diastolic heart failure Hypotension Electrolyte abnormality Erythematous rash Gram-positive bacteremia 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 Pancytopenia (Acute) Rectal cyst Neutropenic fever (Acute) Anxiety AML (acute myeloid leukemia) (Chronic) Symptomatic anemia (Acute) Acute myeloid leukemia (Acute) Central venous catheter in place (Acute) DVT (deep venous thrombosis) (Acute) Surgical History History of allogeneic stem cell transplant History of stem cell transplant Family History Father Heart attack Social History Preferred Language: Maltese Beliefs That Will Affect Care: None marital status: Current Living Situation: Spouse Feels Safe at Home: Yes Smoking Status: Never smoker Hx Alcohol Use: No Hx Substance Use: No Review of Systems Constitutional: + weakness Ear, Nose, Mouth, Throat: no dysphagia Respiratory: + cough and + dyspnea on exertion; no sputum production Cardiovascular: no chest pain Gastrointestinal: no abdominal pain, no nausea and no vomiting Neurologic: no confusion Psychiatric: no anxiety but is anxious to get home Physical Exam Vital Signs (Past 24 Hours): Last Vital Signs Temp 36.7 C 07/30/18 09:39 Pulse 99 H 07/30/18 13:34 Resp 16 07/30/18 13:34 BP 133/74 07/30/18 13:34 Pulse Ox 97 07/30/18 13:34 Constitutional: + ill appearing (chronically and acutely); no acute distress ENMT: Mouth: + dry oral mucous membranes Neck: normal visual inspection and trachea midline Respiratory: normal respiratory effort, + cough and able to speak in complete sentences; no respiratory distress Cardiovascular: Rate/Rhythm: regular rhythm and + tachycardic (mildly) Vessels: no JVD Gastrointestinal (Abdomen): did not assess abdomen at this time Skin: + ecchymosis dark, uremic coloration to skin. scattered ecchymosis and scabbing Neurologic: awake; not confused Psychiatric: Orientation: oriented x 3 Affect: euthymic affect Time Spent Midlevel 70 minutes with >50% of time spent at bedside with patient and her spouse discussing condition, GOC, and hospice.
--- NOTE | 2018-07-30 16:30 | History & Physical Report ---
Date of Service July 30, 2018 Assessment & Plan (1) Bilateral pneumonia: Developed despite dapto/zosyn tx for prior infection Has elected against further tx (2) Gram-positive bacteremia: D/C dapto/zosyn per pt request (3) Goals of care, counseling/discussion: Pt was seen by hospice in the ED I am planning to provide pain, anxiety, nausea medications Consented for and ordered platelets Will d/c all abx, antifungal, antiviral medications Plan is for home with hospice (4) AML (acute myeloid leukemia): Continuing with chemo agents until home is situated with hospice in an effort to ensure pt lives long enough to d/c to home (5) Thrombocytopenia: Requesting transfusion as noted above Requests that repeat CBC not be done unless she requests at a later time (6) Anxiety: continue home meds (7) VLADISLAV (acute kidney injury): s/p IVF in ED, monitor History of Present Illness Primary Care Provider: [facility]CP 62 y/o F c/o AMS. Pt states she was unable to recall the year earlier today at [facility] and so they sent her to the ED. She states that she has started having a cough and some chest pain with that cough a few days ago. She was reported to have a temp of 101.8 this AM. Pt has had a strenuous medical course recently. She has been undergoing tx for AML. She was recently dx with an infected port and was transferred to [facility] where tx was started for that. She was d/c'd from there to [facility] to continue her tx. She has been on dapto and zosyn for this. She is on an antifungal as well. Pt states that at this point she wishes to not pursue further tx. She would like to start with hospice and at her home. Pt is not currently active with hospice and she and her have made no arrangements for their home to be set up for hospice, so they are requesting admission until hospice is in place. Pt states she does not want to continue with abx. "They are killing me." She tells me that she would like to continue with her chemo medications and she would like to have her platelets transfused in an effort to prolong her life long enough to d/c to home with hospice. Her was not present during this discussion as she had left to go home to start to prepare their home for hospice. A friend was present and agrees with this plan. Pt was dx with multifocal PNA in the ED. This is despite the fact that she has been on dapto and zosyn for her recent port infection. Given this information, pt has decided she does not want tx for the PNA at this time. Pt denies SOB, abd pain, n/v/c/d. She does have LE swelling and pain. She states she has minimal appetite but does tolerate Boost. This is most of her diet at present. Allergies Allergy/AdvReac Type Severity Reaction Status Date / Time vancomycin Allergy Mild Full body Verified 07/30/18 10:50 rash red meat AdvReac Unknown Uncoded 07/30/18 10:50 Home Medications Home Medications Medication Instructions Recorded Confirmed Type acyclovir 400 mg PO BID 06/27/18 07/30/18 History alprazolam 0.25 mg PO HS PRN 06/27/18 07/30/18 History isavuconazonium sulfate 372 mg PO QAM 06/27/18 07/30/18 History metronidazole [Flagyl] 500 mg PO Q8 06/27/18 07/30/18 History sennosides-docusate sodium 1 tab PO BID PRN 06/27/18 07/30/18 History [Senna-S] sirolimus 2 mg PO QAM 06/27/18 07/30/18 History Refresh Tears 1 drp OPB Q1H PRN 06/30/18 07/30/18 History gilteritinib 120 mg PO QAM 06/30/18 07/30/18 History Magic Swizzle 1 dose PO Q6H 07/30/18 07/30/18 History acetaminophen [Tylenol Extra 500 mg PO Q4H PRN 07/30/18 07/30/18 History Strength] atovaquone 1,500 mg PO QDL 07/30/18 07/30/18 History celecoxib 200 mg PO BID 07/30/18 07/30/18 History daptomycin 350 mg IV DAILY@1800 07/30/18 07/30/18 History lansoprazole 30 mg PO QDL 07/30/18 07/30/18 History magnesium chloride 256 mg PO HS 07/30/18 07/30/18 History magnesium hydroxide [Milk of 30 ml PO DAILY PRN 07/30/18 07/30/18 History Magnesia] oxycodone 10 mg PO Q3H PRN 07/30/18 07/30/18 History piperacillin-tazobactam [Zosyn] 4.5 g IV Q8H 07/30/18 07/30/18 History prednisone 30 mg PO HS 07/30/18 07/30/18 History Past Med/Surg History Medical History Metabolic acidosis Chronic diastolic heart failure Hypotension Electrolyte abnormality Erythematous rash Gram-positive bacteremia 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 Pancytopenia (Acute) Rectal cyst Neutropenic fever (Acute) Anxiety AML (acute myeloid leukemia) (Chronic) Symptomatic anemia (Acute) Acute myeloid leukemia (Acute) Central venous catheter in place (Acute) DVT (deep venous thrombosis) (Acute) Surgical History History of allogeneic stem cell transplant History of stem cell transplant Family History Father Heart attack Social History Preferred Language: Nepalese Beliefs That Will Affect Care: None marital status: Current Living Situation: Spouse Feels Safe at Home: Yes Smoking Status: Never smoker Hx Alcohol Use: No Hx Substance Use: No Review of Systems Pertinent positives and negatives reviewed in HPI--all others negative Physical Exam 2 Vital Signs (Past 24 Hours): Last Vital Signs Temp 36.7 C 07/30/18 09:39 Pulse 100 H 07/30/18 15:40 Resp 20 07/30/18 15:49 BP 129/72 07/30/18 15:40 Pulse Ox 94 07/30/18 15:49 Constitutional: well developed and + ill appearing; no acute distress Eyes: normal visual paul by confrontation and + anicteric sclerae Neck: normal visual inspection and trachea midline Respiratory: normal respiratory effort, lungs clear to auscultation Cardiovascular: Rate/Rhythm: regular rate and regular rhythm Gastrointestinal (Abdomen): Inspection/Auscultation: abdomen not distended Percussion/Palpation: abdomen soft; abdomen nontender Musculoskeletal: Head/Neck/Chest: normocephalic and head atraumatic 1+ pitting edema, peripheral pulses intact TTP Skin: skin is warm and dry with a somewhat bronze appearance compared with prior times I have seen pt Neurologic: awake; not confused Speech / Cognition: normal speech Psychiatric: A+Ox3, euthymic affect Results & Data Diagnostic Findings CXR: multifocal PNA Code Status & VTE Plan Code Status DNR/DNI VTE Prophylaxis Plan VTE Prophylaxis will be ordered: No (1) Bilateral pneumonia Lung location: unspecified part of lung Pneumonia type: due to unspecified organism Qualified Code(s): J18.9 - Pneumonia, unspecified organism (2) AML (acute myeloid leukemia) Leukemia Active/Remission status: in remission Qualified Code(s): C92.01 - Acute myeloblastic leukemia, in remission; C92.61 - Acute myeloid leukemia with [id number] in remission; C92.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
[2018-07-30] MEDS ORDERED: ARTIFICIAL TEARS OPB PRN (16:50)
[2018-07-30] MEDS ORDERED: SODIUM CHLORIDE 0.9% 250 ML IV PRN (16:50)
[2018-07-30] MEDS ORDERED: NON-FORMULARY MEDICATION (Magic Swizzle 1 EA) PO SCH (16:50)
[2018-07-30] MEDS ORDERED: ONDANSETRON INJ 2 MG/ML 2 ML VIAL IV PRN (16:50)
[2018-07-30] MEDS ORDERED: ALPRAZolam 0.25 MG TABLET PO PRN (16:50)
[2018-07-30] MEDS ORDERED: MAGNESIUM HYDROXIDE SUSP 30 ML UDC PO PRN ×2 (16:50)
[2018-07-30] MEDS ORDERED: MoRPHine SULFATE 2 MG/ML CARP IV PRN (16:50)
[2018-07-30] MEDS ORDERED: ACETAMINOPHEN 500 MG TAB PO PRN (16:50)
[2018-07-30] MEDS ORDERED: ACETAMINOPHEN 325 MG TAB PO PRN (16:50)
[2018-07-30] MEDS ORDERED: DOCUSATE SODIUM/SENNA 50/8.6MG TAB PO PRN (16:50)
[2018-07-30] MEDS: OXYCODONE HCL IR 5 MG TAB (IMMEDIATE RELEASE) PO PRN ×2 (18:35→23:49)
[2018-07-30] MEDS: Magic Swizzle 240mL MT SCH ×2 (20:04→23:38)
[2018-07-30] MEDS: CeleBREX 200 MG CAP PO SCH (21:06)
[2018-07-30] MEDS: predniSONE 10 MG TABLET PO SCH (21:06)
[2018-07-31] MEDS: Magic Swizzle 240mL MT SCH ×3 (06:04→18:01)
[2018-07-31] MEDS: [UNRECOGNIZED DRUG - OTHER] PO SCH (08:23)
[2018-07-31] MEDS: CeleBREX 200 MG CAP PO SCH ×2 (08:23→21:27)
[2018-07-31] MEDS: SIROLIMUS 0.5 MG TABLET PO SCH (08:24)
[2018-07-31] MEDS ORDERED: BENZONATATE 100 MG CAPSULE PO PRN (09:44)
[2018-07-31] MEDS ORDERED: BENZONATATE 100 MG CAPSULE PO STA (10:06)
[2018-07-31 10:48] LABS: Albumin Globulin Ratio 0.3 (0.9-2); Albumin Level 1.4 gm/dl (3.4-5.0); BUN Creatinine Ratio 26.5 (10-20); Bilirubin,Total 0.8 mg/dl (0.2-1); Calcium 8.5 mg/dl (8.5-10.1); Creatinine Clr Calc Pharmacy 29.4 ml/min; Est GFR (African American) 55.4; Est GFR (Non-African American) 47.8; Globulin 4.1 gm/dl (2.5-4.0); Magnesium 2.7 mg/dl (1.8-2.4); Phosphorus 3.3 mg/dl (2.5-4.9); Potassium 4.5 mmol/L (3.5-5.1); Total Protein 5.5 gm/dl (6.4-8.2); Troponin I 0.022 ng/ml (0-0.045)
[2018-07-31 10:49] LABS: Platelet Count 17 K/uL (130-400)
[2018-07-31 11:11] LABS: Hematocrit (blood only) 22.3 % (37-47); Hemoglobin 7.9 g/dL (12.0-16.0); Mean Corpuscular Hgb Conc 35.4 g/dL (32-36); Mean Corpuscular Volume 81.4 fL (80-100); Mean Platelet Volume 9.2 fL (7.4-10.4); RDW Coefficient of Variation 17.4 % (11.5-14.5); RDW Standard Deviation 52.4 fL (36.4-46.3); Red Blood Count 2.74 M/uL (4.2-5.4); White Blood Count 1.74 K/uL (4.8-10.8)
[2018-07-31 11:14] LABS: ALC (manual) 0.14 K/uL (1.2-3.4); Basophils # (manual) 0.05 K/uL (0-0.2); Lymphocytes # (manual) 0.14 K/uL (1.2-3.4); Monocytes # (manual) 0.64 K/uL (0.11-0.59); Target Cells 1+; Toxic Granulation 2+; Toxic Vacuolation 1+
[2018-07-31] MEDS: guaiFENesin 600 MG TABCR PO SCH ×2 (11:18→21:28)
[2018-07-31] MEDS: PANTOprazole 40 MG TAB PO SCH (11:19)
--- NOTE | 2018-07-31 11:20 | Palliative Care Progress Note ---
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 Patient is end-stage and has requested to go home with hospice. Her spouse, Nereida, is in agreement with patient's wishes. -Patient was admitted for medical treatment while her home is prepared for home hospice. Continue to treat medically/conservatively while in hospital. Once home on hospice, aggressive/active treatment will discontinue per patient's wishes. -Hospitalist managing care. Patient received platelets yesterday. Will receive electrolyte replacements today. -PICC line is reportedly non-functioning. If so, would recommend removing it while patient is here. -24-hour care being set up by patient's , Nereida, through [facility]. -Referral to A hospice. Case management also following. -No symptom management needs at this time. Does have oxycodone 10mg ordered as needed. Also has morphine ordered as needed. Can convert to Roxanol 5mg PO/SL Q3h PRN pain or SOB. Patient denied pain during my visit. 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 Denies pain at this time. Is anxious to get home wit her family and dogs. Constitutional: + weakness; no fever and no chills Ear, Nose, Mouth, Throat: + dry mouth; no dysphagia Respiratory: + cough; no dyspnea and no sputum production Cardiovascular: no chest pain and no edema Gastrointestinal: no abdominal pain, no nausea and no vomiting Neurologic: no confusion Psychiatric: no anxiety Physical Exam Vital Signs (Past 24 Hours): Last Vital Signs Temp 36.6 C 07/31/18 06:54 Pulse 77 07/31/18 06:54 Resp 17 07/31/18 06:54 BP 108/68 07/31/18 06:54 Pulse Ox 98 07/31/18 06:54 Constitutional: + ill appearing (chronically and acutely); no acute distress ENMT: Mouth: + dry oral mucous membranes Neck: normal visual inspection and trachea midline Respiratory: normal respiratory effort, + cough and able to speak in complete sentences; no respiratory distress Cardiovascular: Rate/Rhythm: regular rate and regular rhythm Vessels: dorsalis pedis pulses present; no JVD Extremities: + edema (non-pitting of BLE) Gastrointestinal (Abdomen): Inspection/Auscultation: abdomen normal to inspection and normal bowel sounds; abdomen not distended Percussion/Palpation: abdomen soft; abdomen nontender Skin: + ecchymosis Neurologic: awake; not confused Psychiatric: Orientation: oriented x 3 Affect: euthymic affect Supervising Physician Co-Signing Physician Notes Patient seen and examined-patient's spouse at bedside. Patient currently receiving platelet infusion Collaborated with COOPER Peralta PE: Patient awake and alert, slightly more confused than on exam yesterday HEENT: EOMI, normal hearing Respirations: Unlabored, positive cough CV: Regular rate Extremities: Cool to touch, no mottling, multiple ecchymoses and extensive bruising Agree with above note, assessment and plan as per COOPER Peraltaplan is for discharge home tomorrow under hospice care. Time Spent Midlevel 35 minutes with >50% of time spent at bedside with patient discussing her condition, GOC, and plan of care. Attending Spent 30 minutes in addition to the time spent by COOPER Cotefor a total of 65 minutes with greater than 50% of the time spent at bedside discussing goals of care (1) AML (acute myeloid leukemia) Leukemia Active/Remission status: in remission Qualified Code(s): C92.01 - Acute myeloblastic leukemia, in remission; C92.61 - Acute myeloid leukemia with [id number] in remission; C92.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 (2) Neutropenia Neutropenia type: secondary to cancer chemotherapy Qualified Code(s): D70.1 - Agranulocytosis secondary to cancer chemotherapy; T45.1X5A - Adverse effect of antineoplastic and immunosuppressive drugs, initial encounter (3) Bilateral pneumonia Lung location: unspecified part of lung Pneumonia type: due to unspecified organism Qualified Code(s): J18.9 - Pneumonia, unspecified organism
[2018-07-31] MEDS ORDERED: SODIUM CHLORIDE 0.9% 250 ML IV PRN ×2 (13:29→13:31)
[2018-07-31] MEDS: ATOVAQUONE 750 MG/5 ML UDC PO SCH (15:11)
[2018-07-31] MEDS: ACYCLOVIR 200 MG CAP PO SCH (21:28)
[2018-07-31] MEDS: predniSONE 10 MG TABLET PO SCH (21:29)
--- NOTE | 2018-07-31 22:52 | Hospitalist Progress Note ---
Date of Service July 31, 2018 Assessment & Plan (1) Bilateral pneumonia: Developed despite dapto/zosyn tx for prior infection Has elected against further tx (2) Gram-positive bacteremia: D/C dapto/zosyn per pt request (3) Goals of care, counseling/discussion: Patient had palliative care meeting. Patient for now is requesting to continue all of her prophylaxis treament until she gets home. Plan is for home with hospice will monitor. (4) AML (acute myeloid leukemia): Continuing with chemo agents until home is situated with hospice in an effort to ensure pt lives long enough to d/c to home (5) Thrombocytopenia: Requesting transfusion as noted above Patient will be getting transfusion today. Patient is accepting recheck labs in AM. (6) Anxiety: continue home meds (7) VLADISLAV (acute kidney injury): s/p IVF in ED, monitor Spent 40 minutes in the management of this patient. Subjective Patient currently has no new complaints today. Patient reports feeling well and would like to be discharged soon. Physical Exam Vital Signs (Past 24 Hours): Last Vital Signs Temp 36.6 C 07/31/18 22:09 Pulse 88 07/31/18 22:09 Resp 18 07/31/18 22:09 BP 156/95 H 07/31/18 22:09 Pulse Ox 94 07/31/18 22:09 Physical Exam: Constitutional: well developed and + ill appearing; no acute distress Eyes: normal visual paul by confrontation and + anicteric sclerae Neck: normal visual inspection and trachea midline Respiratory: normal respiratory effort, lungs clear to auscultation Cardiovascular: Rate/Rhythm: regular rate and regular rhythm Gastrointestinal (Abdomen): Inspection/Auscultation: abdomen not distended Percussion/Palpation: abdomen soft; abdomen nontender Musculoskeletal: Head/Neck/Chest: normocephalic and head atraumatic 1+ pitting edema, peripheral pulses intact TTP Skin: skin is warm and dry with a somewhat bronze appearance compared with prior times I have seen pt Neurologic: awake; not confused Speech / Cognition: normal speech Psychiatric: A+Ox3, euthymic affect (1) AML (acute myeloid leukemia) Leukemia Active/Remission status: in remission Qualified Code(s): C92.01 - Acute myeloblastic leukemia, in remission; C92.61 - Acute myeloid leukemia with [id number] in remission; C92.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 (2) Bilateral pneumonia Lung location: unspecified part of lung Pneumonia type: due to unspecified organism Qualified Code(s): J18.9 - Pneumonia, unspecified organism
[2018-08-01] MEDS: Magic Swizzle 240mL MT SCH ×3 (01:25→11:46)
[2018-08-01] MEDS: MoRPHine SULFATE 5 MG/0.25 ML UDP PO PRN ×5 (05:07→17:25)
[2018-08-01 06:05] LABS: Hematocrit (blood only) 29.4 % (37-47); Hemoglobin 10.4 g/dL (12.0-16.0); Mean Corpuscular Hgb Conc 35.4 g/dL (32-36); Mean Corpuscular Volume 82.6 fL (80-100); Mean Platelet Volume 8.6 fL (7.4-10.4); Platelet Count 84 K/uL (130-400); RDW Coefficient of Variation 15.8 % (11.5-14.5); RDW Standard Deviation 47.8 fL (36.4-46.3); Red Blood Count 3.56 M/uL (4.2-5.4); White Blood Count 1.95 K/uL (4.8-10.8)
[2018-08-01] MEDS ORDERED: FUROSEMIDE 20 MG in SYRINGE 0 ML IV ONE (06:15)
[2018-08-01 06:26] LABS: Albumin Level 1.8 gm/dl (3.4-5.0); BUN Creatinine Ratio 31.6 (10-20); Calcium 8.7 mg/dl (8.5-10.1); Creatinine Clr Calc Pharmacy 26.6 ml/min; Est GFR (Non-African American) 42.3; Potassium 4.9 mmol/L (3.5-5.1)
[2018-08-01 06:29] LABS: Albumin Globulin Ratio 0.4 (0.9-2); Bilirubin,Total 1.1 mg/dl (0.2-1); Globulin 4.4 gm/dl (2.5-4.0); Total Protein 6.2 gm/dl (6.4-8.2)
[2018-08-01 06:52] LABS: ALC (manual) 0.47 K/uL (1.2-3.4); Echinocytes 1+; Lymphocytes # (manual) 0.47 K/uL (1.2-3.4); Lymphocytes % (manual) 24.3 %; Metamyelocytes # (manual) 0.02 K/uL (0-0); Monocytes # (manual) 0.27 K/uL (0.11-0.59); Monocytes % (manual) 13.6 %; Neutrophils % (manual) 61.1 %; Schistocytes Occasional; Toxic Granulation 2+; Toxic Vacuolation 1+
[2018-08-01] MEDS: [UNRECOGNIZED DRUG - OTHER] PO SCH (07:56)
[2018-08-01] MEDS: SIROLIMUS 0.5 MG TABLET PO SCH (07:56)
[2018-08-01] MEDS: ACYCLOVIR 200 MG CAP PO SCH (07:56)
[2018-08-01] MEDS: guaiFENesin 600 MG TABCR PO SCH (07:56)
[2018-08-01] MEDS: CeleBREX 200 MG CAP PO SCH (07:56)
[2018-08-01] MEDS ORDERED: FUROSEMIDE 60 MG in SYRINGE 0 ML IV ONE (09:15)
--- NOTE | 2018-08-01 09:46 | XRay Report ---
XR chest 1V portable CLINICAL HISTORY: Tachypnea COMPARISON STUDY: 07/30/2018 FINDINGS: The cardiac and mediastinal contours remain stable. There are small bilateral pleural effus ions. There are progressive bilateral patchy airspace opacities.[ IMPRESSION: Significant worsening in the bilateral pulmonary airspace opacities. A multifocal pneumon ia is favored over asymmetric pulmonary edema. Clinical correlation in this regard is advocated. In a ddition there are small bilateral pleural effusions. Electronically signed by: Santos Holguin M.D. 08/01/2018 9:45 AM
[2018-08-01] MEDS: PANTOprazole 40 MG TAB PO SCH (11:46)
[2018-08-01] MEDS: ATOVAQUONE 750 MG/5 ML UDC PO SCH (11:46)
--- NOTE | 2018-08-01 13:38 | Palliative Care Progress Note ---
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 Patient is end-stage and has requested to go home with hospice. Her spouse, Nereida, is in agreement with patient's wishes. -Patient in respiratory distress this morning. She received several bags of blood products last night and was thought to be fluid overloaded. She was given 20mg IV Lasix this morning. CXR obtained at 0850-- report stated that worsening pneumonia is favored over pulmonary edema. However, an additional 60mg IV Lasix was given anyway to try and help get patient some relief. -Talked with patient. Asked if breathing continues to be like this, would she want to be placed on bipap. She said no, she does not want bipap. She is okay with continuing Roxanol as needed for air hunger, but she is hoping the Lasix will work. I will hold off on ordering Ativan for now as patient states she does not feel anxious and does not want to be too sedated as she wants to get home. -Martinez catheter placed per patient's request. Nereida is aware. -Dr. Lipscomb spoke to patient's spouse Nereida over the phone about patient's worsening SOB/dyspnea. Patient could very soon after transport if not during transport. Nereida verbalized understanding and stated that she does not want patient to in the hospital. She is okay with continuing with plan of getting patient home with hospice. Patient also wants to get home at any cost. -Meds will need to be in the home prior to patient going home. Asked Dr. Lipscomb to write for comfort pack, or at least Roxanol, so Nereida can fill them. -Transport set up by casework supervisor for this afternoon at 1630. -Increased Roxanol to 5mg PO/SL Q1h PRN pain or SOB. 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 Received blood products last night and is very SOB. Discussed with patient and her spouse, Nereida, that transferring patient at this point could result in expiration while en route. Patient and spouse both verbalized understanding and still want to take patient home. Constitutional: + weakness; no fever and no chills Ear, Nose, Mouth, Throat: + dry mouth; no dysphagia Respiratory: + cough and + dyspnea Cardiovascular: no chest pain and no edema Gastrointestinal: no abdominal pain and no nausea Psychiatric: no anxiety Physical Exam Vital Signs (Past 24 Hours): Last Vital Signs Temp 36.6 C 08/01/18 02:35 Pulse 103 H 08/01/18 11:31 Resp 24 08/01/18 11:31 BP 170/120 H 08/01/18 11:31 Pulse Ox 80 L 08/01/18 11:31 Constitutional: + ill appearing (chronically and acutely) ENMT: Mouth: + dry oral mucous membranes Neck: normal visual inspection and trachea midline Respiratory: + respiratory distress, + labored breathing and + cough Auscultation: + rhonchi (coarse throughout) Cardiovascular: Rate/Rhythm: regular rate, regular rhythm and + tachycardic (mildly) Vessels: dorsalis pedis pulses present; no JVD Extremities: + edema (non-pitting of BLE) Gastrointestinal (Abdomen): Inspection/Auscultation: abdomen normal to inspection and normal bowel sounds; abdomen not distended Percussion/Palpation: abdomen soft; abdomen nontender Skin: + ecchymosis skin is dark Neurologic: awake Psychiatric: Orientation: oriented x 3 Supervising Physician Co-Signing Physician Notes Chart reviewed, patient seen and examined-no family at bedside Patient with decreased responsiveness, increased work of breathing PE: Patient minimally responsive Respirations: Coarse wet breath sounds, increased work of breathing, on O2 at 6 L via oxygen mask CV: Tachycardic Extremities: Positive mottling Agree with above note, assessment and plan as per COOPER Peralta Both patient and spouse his goal are to have patient at home. Time Spent Midlevel 35 minutes with >50% of time spent at bedside with patient and physician discussing condition, plan of care and GOC. (1) AML (acute myeloid leukemia) Leukemia Active/Remission status: in remission Qualified Code(s): C92.01 - Acute myeloblastic leukemia, in remission; C92.61 - Acute myeloid leukemia with [id number] in remission; C92.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 (2) Neutropenia Neutropenia type: secondary to cancer chemotherapy Qualified Code(s): D70.1 - Agranulocytosis secondary to cancer chemotherapy; T45.1X5A - Adverse effect of antineoplastic and immunosuppressive drugs, initial encounter (3) Bilateral pneumonia Lung location: unspecified part of lung Pneumonia type: due to unspecified o rganism Qualified Code(s): J18.9 - Pneumonia, unspecified organism
[2018-08-01] MEDS ORDERED: SCOPOLAMINE 1.5 MG TDSY TD SCH (14:00)
[2018-08-01] MEDS ORDERED: CHECK SCOPOLAMINE PATCH PLACEMENT SCH (16:00)
--- NOTE | 2018-08-09 07:48 | Discharge Summary ---
Date of Service August 01, 2018 Admission HPI Per Admitting Provider 62 y/o F c/o AMS. Pt states she was unable to recall the year earlier today at [facility] and so they sent her to the ED. She states that she has started having a cough and some chest pain with that cough a few days ago. She was reported to have a temp of 101.8 this AM. Pt has had a strenuous medical course recently. She has been undergoing tx for AML. She was recently dx with an infected port and was transferred to [facility] where tx was started for that. She was d/c'd from there to [facility] to continue her tx. She has been on dapto and zosyn for this. She is on an antifungal as well. Pt states that at this point she wishes to not pursue further tx. She would like to start with hospice and at her home. Pt is not currently active with hospice and she and her have made no arrangements for their home to be set up for hospice, so they are requesting admission until hospice is in place. Pt states she does not want to continue with abx. "They are killing me." She tells me that she would like to continue with her chemo medications and she would like to have her platelets transfused in an effort to prolong her life long enough to d/c to home with hospice. Her was not present during this discussion as she had left to go home to start to prepare their home for hospice. A friend was present and agrees with this plan. Pt was dx with multifocal PNA in the ED. This is despite the fact that she has been on dapto and zosyn for her recent port infection. Given this information, pt has decided she does not want tx for the PNA at this time. Pt denies SOB, abd pain, n/v/c/d. She does have LE swelling and pain. She states she has minimal appetite but does tolerate Boost. This is most of her diet at present. Principal Diagnosis bilateral pneumonia Discharge Exam Constitutional: well developed and + ill appearing; no acute distress, states she wants to go home. Eyes: normal visual paul by confrontation and + anicteric sclerae Neck: normal visual inspection and trachea midline Respiratory: coarse breath sounds, using accessory muscles to breath. Cardiovascular: Rate/Rhythm: regular rate and regular rhythm Gastrointestinal (Abdomen): Inspection/Auscultation: abdomen not distended Percussion/Palpation: abdomen soft; abdomen nontender Musculoskeletal: Head/Neck/Chest: normocephalic and head atraumatic 1+ pitting edema, peripheral pulses intact TTP Skin: skin is warm and dry with a somewhat bronze appearance compared with prior times I have seen pt Neurologic: awake; not confused Speech / Cognition: normal speech Psychiatric: A+Ox3, euthymic affect Discharge Data Allergies Allergy/AdvReac Type Severity Reaction Status Date / Time vancomycin Allergy Mild Full body Verified 07/30/18 10:50 rash red meat AdvReac Unknown Uncoded 07/30/18 10:50 Consultations 07/30/18 12:44 ED Decision to Admit Stat 07/30/18 16:50 Consult Case Management - Discharge Planning Routine Consult Palliative Care Stat Hospital Course (1) Bilateral pneumonia: Developed despite dapto/zosyn tx for prior infection Has elected against further tx. On 08/01, patient breath sounds were worse. Ordered lasix but patient did not improve. Concern over ability of patient surviving transport home. Called the patient's , she she was updated and states that if patient wants to go home, she will allow for it. Medicine such as scopolamine, morphine and alprazolam will be written. (2) Gram-positive bacteremia: D/C dapto/zosyn per pt request (3) Goals of care, counseling/discussion: Patient had palliative care meeting. Patient for now is requesting to continue all of her prophylaxis treament until she gets home. Plan is for home with hospice will monitor. (4) AML (acute myeloid leukemia): Continuing with chemo agents until home is situated with hospice in an effort to ensure pt lives long enough to d/c to home (5) Thrombocytopenia: Requesting transfusion as noted above Patient will be getting transfusion today. Labs showed improvement on day of discharge. (6) Anxiety: continue home meds (7) VLADISLAV (acute kidney injury): s/p IVF in ED, monitor Total Time Total Time Spent Total Time Spent (In Minutes): 62 Total Time Includes: Examination of the Patient, Discharge Planning and Medication Reconciliation Discharge Plan Discharge Items Patient Disposition: Hospice - Home Reason For Visit: PNA Discharge Diagnosis: Bilateral pneumonia Discharge Goals: Decrease discomfort Activity: As commented below Activity Comment: Bed rest Non-emergency contact: Specialist Call non-emergency contact if: you have any medication questions Follow-up/Referrals: PCP,NO [Primary Care Provider] - Diet: Full liquid Addtl Provider Instructions: Patient will be discharged to home hospice. Prescriptions: New morphine 20 mg/5 mL (4 mg/mL) solution 5 mg PO Q1H PRN (Reason: SOB/PAIN) Qty: 100 RF: 0 alprazolam 0.25 mg tablet 0.25 mg PO Q1H PRN (Reason: anxiety) Qty: 20 RF: 0 scopolamine base 1 mg over 3 days patch 3 day 1 patch TD Q3D Qty: 4 RF: 0 Continued Refresh Tears 0.5 % Drops 1 drp OPB Q1H PRN (Reason: Dry Eye(S)) RF: 0 gilteritinib 40 mg Tablet 120 mg PO QAM RF: 0 sennosides-docusate sodium [Senna-S] 8.6-50 mg Tablet 1 tab PO BID PRN (Reason: Constipation) RF: 0 metronidazole [Flagyl] 250 mg Tablet 500 mg PO Q8 RF: 0 alprazolam 0.25 mg Tablet 0.25 mg PO HS PRN (Reason: Anxiety) RF: 0 acyclovir 200 mg Capsule 400 mg PO BID RF: 0 sirolimus 0.5 mg Tablet 2 mg PO QAM RF: 0 isavuconazonium sulfate 186 mg Capsule 372 mg PO QAM RF: 0 celecoxib 200 mg capsule 200 mg PO BID RF: 0 prednisone 10 mg Tablet 30 mg PO HS RF: 0 acetaminophen [Tylenol Extra Strength] 500 mg Tablet 500 mg PO Q4H PRN (Reason: pain/fever) RF: 0 magnesium hydroxide [Milk of Magnesia] 400 mg/5 mL Suspension 30 ml PO DAILY PRN (Reason: Constipation) RF: 0 lansoprazole 15 mg capsule,delayed release(DR/EC) 30 mg PO QDL RF: 0 atovaquone 750 mg/5 mL suspension 1,500 mg PO QDL RF: 0 oxycodone 5 mg Tablet 10 mg PO Q3H PRN (Reason: Pain (Scale Score 4-6)) RF: 0 magnesium chloride 64 mg Tablet,Delayed Release (Dr/Ec) 256 mg PO HS RF: 0 Magic Swizzle 1 dose PO Q6H RF: 0 daptomycin 500 mg recon soln 350 mg IV DAILY@1800 RF: 0 Discontinued piperacillin-tazobactam [Zosyn] 4.5 gram Recon Soln 4.5 g IV Q8H RF: 0 Stand-Alone Forms: [facility] Discharge Orders: Discharge Order (Routine); Ordered 08/01/18 Ordered By: Andrew Lipscomb Admission Data Admit Date/Time: 07/30/18 15:00 Attending Provider: Andrew Lipscomb Admit Provider: Kadie Juarez Primary Care Provider: PCP,NO Other Providers: Kadie Juarez ; Roseline Londono Service: Oncology Other Interventions: Discharge Summary Assessment (RN) Last Done: 08/01/18 13:58 DC Date/Time DO NOT enter until pt leaves facility: 08/01/18 18:20
== END 2018-08-01 18:20 | disposition hospice, home (50) | DRG 194 ==
LOC: ED 09:33 → 4E 15:00 → SUATTDRO 15:00 → 4E 15:49